=== PATIENT | male | born 1940 | race Caucasian/White ===

== ENCOUNTER 2017-06-28 11:37 | Emergency (ER) | payer MEDICARE ==
[2017-06-28] MEDS ORDERED: oxyCODONE HCL/ACETAMINOPHEN 1 TAB TABLET PO ONE (12:24)
[2017-06-28] MEDS ORDERED: oxyCODONE HCL/ACETAMINOPHEN 1 TAB TABLET ONE (12:27)
[2017-06-28 12:33] VITALS: BP 133/55
--- NOTE | 2017-06-28 12:36 | ERNOTE ---
Lower Extremity HPI - Narrative Date of Service: 06/28/17 - General Lower Extremities Pain: knee: left Time Seen by Provider: 06/28/17 12:09 Source: patient, family, RN notes reviewed Exam Limitations: no limitations - Immun/Allergies/Home Medications Immunizations: IMMUNIZATION HX History of Influenza Vaccine Yes Hx Pneumococcal Vaccination Yes Allergies/Adverse Reactions: Allergies Allergy/AdvReac Type Severity Reaction Status Date / Time No Known Allergies Allergy Verified 06/28/17 11:53 Home Medications: HOME MEDICATIONS Bimatoprost [Lumigan 0.03% Ophthalmic Solution] 1 drop EACHEYE HS 11/28/14 [ Last Taken Unknown] Calcium Carbonate/Vitamin D3 [Caltrate-600 with Vit D Tab] 1 each PO BID [Last Taken Unknown] Cholecalciferol (Vitamin D3) [Vitamin D3] 2,000 unit PO DAILY 11/28/14 [Last Taken Unknown] Duloxetine HCl [Cymbalta] 60 mg PO DAILY 11/28/14 [Last Taken Unknown] Glimepiride [Amaryl] 4 mg PO DAILY@0700 11/28/14 [Last Taken Unknown] Insulin Glargine,Hum.rec.anlog [Lantus] 32 units SQ BID 11/28/14 [Last Taken Unknown] [place]-3 Fatty Acids/Fish Oil [Fish Oil 1,200 mg Softgel] 1 each PO TID 11/28/14 [Last Taken Unknown] Terazosin HCl 10 mg PO HS 11/28/14 [Last Taken Unknown] Afrin Nasal [place] 02/16/17 [Last Taken Unknown] Carbidopa-Levo 25-100 mg Odt 02/16/17 [Last Taken Unknown] Carbidopa/Levodopa Cr 50/200 02/16/17 [Last Taken Unknown] Ropinirole ER 02/16/17 [Last Taken Unknown] Stool Softener 02/16/17 [Last Taken Unknown] - History of Present Illness Narrative: 76 y/o male ambulatory to the ED for a left knee injury that occurred just over an hour ago. He was walking down his front steps at home when he fell and landed on the knee. He reports pain in the posterior aspect of the knee. He is walking with a walker. He was actually leaving home to come to the hospital for PT for his back. Occurred: just prior to arrival Location of Incident: home Method of Injury: Reports: fell Reason for Fall: Reports: unknown Loss of Consciousness: Reports: no loss of consciousness Associated Symptoms: Denies: unable to bear weight, snapping, popping sensation Other Injuries: Reports: none Subsequent Symptoms: Denies: sensory loss, numbness, motor loss Prior Treament: Denies: recently seen Review of Systems - Review of Systems Constitutional: Absent: recent illness, fever, malaise EYE: Present: no symptoms reported ENT: Present: no symptoms reported Respiratory: Present: no symptoms reported Cardiology: Absent: chest pain, syncope, edema Gastrointestinal/Abdominal: Absent: nausea, vomiting Genitourinary: Present: no symptoms reported Musculoskeletal: Present: back pain, joint pain. Absent: neck pain, joint swelling Skin: Absent: rash, lesions, lumps Neurological: Absent: headache, dizziness/light-headedness Endocrine: Present: no symptoms reported Hematologic/Lymphatic: Present: no symptoms reported Psych: Present: no symptoms reported - Patient's Past Medical History Patient History - Medical: Anemia, Arthritis, Diabetes Type 2, Depression, GERD , Kidney stone, Renal Disease, Other - Parkinson's Patient History - Cardiac/Respiratory: Hyperlipidemia, TIA Patient History - Cancer: No Hx of Cancer Patient History - Surgical Procedures: Back Surgery, Cholecystectomy, Colonoscopy, EGD, Other, Orthopedic Patient History - Other: None - Social History Living Situations: home Psych History: No pertinent hx Smoking Status: Former smoker Alcohol Use: none Drug Use: none - Immunizations Hx Pneumococcal Vaccination: Yes History of Influenza Vaccine: Yes Physical Exam - Physical Exam General Appearance: Present: wd/wn, alert, no apparent distress Head Exam: Present: normal inspection, no evidence of injury Respiratory: Present: no respiratory distress, no accessory muscle use Extremity Exam: Present: no edema, decreased range of motion - Left knee, other - Mild tenderness to left posterior knee, no ecchymosis or deformity Neurological Exam: Present: alert, oriented, normal mood/affect, no motor/ sensory deficits Skin Exam: Present: normal color, warm/dry ED Progress - Vital Signs Patient's Vital Signs:: I have reviewed the patient's vital signs. Vital Signs: Vital Signs 06/28/17 11:49 Temperature 36.8 C Pulse Rate 68 Respiratory 17 Rate Blood Pressure 141/86 O2 Sat by Pulse 97 Oximetry - X-Ray X-Ray #1 X-Ray: knee Interpretation: Reviewed by me X-ray Comments: Left knee IMPRESSION: 1. No definable acute fracture. 2. Lateral subluxation of the patella versus projectional artifact. Correlate clinically. 3. Large joint effusion present. Consider internal derangement. 4. 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 Correlate can agree for calcium pyrophosphate deposition disease arthropathy. 5. Additional comments are as above. Electronically signed by Nnamdi Corley M.D.. - Progress/Reassessment Chief Complaint: Lower Extremity Pain/ Injury Progress:: Improved Progress Note-Subjective: 06/28/17 12:54 ROMAINE wrap to left knee, to f/u with orthopedics Departure Clinical Impression: Knee effusion, left Fall down steps Qualifiers: Encounter type: initial encounter Qualified Code(s): W10.8XXA - Fall (on) (from ) other stairs and steps, initial encounter - Departure Disposition: Home Follow Up Needed Condition: Stable Instructions: Knee Effusion, [id number] Additional Instructions: Ice to sore area ROMAINE wrap as needed Percocet as directed for pain, do not take your Tramadol if you are taking this , may cause constipation Follow up with orthopedics as scheduled Referrals: Rebel Da Silva MD [Staff Physician] -
== END 2017-06-28 13:00 | disposition home or self-care (01) ==
LOC: ER 11:37
DX: M25.462 Effusion, left knee (principal); W10.8XXA Fall (on) (from) other stairs and steps, initial encounter

== ENCOUNTER 2017-08-02 20:22 | Emergency (ER) | payer MEDICARE ==
--- NOTE | 2017-08-02 21:45 | ERNOTE ---
<Ольга Huang - Last Filed: 08/02/17 22:41> Medical Problem HPI - Narrative Date of Service: 08/02/17 - General Chief Complaint: Diabetes Related Problem Time Seen by Provider: 08/02/17 21:30 Source: patient Exam Limitations: no limitations - Immun/Allergies/Home Medications Immunizations: IMMUNIZATION HX Immunizations Up to Date Yes History of Influenza Vaccine No Hx Pneumococcal Vaccination No Allergies/Adverse Reactions: Allergies No Known Allergies Allergy (Verified 06/28/17 11:53) Home Medications: HOME MEDICATIONS Duloxetine HCl [Cymbalta] 60 mg PO BID 11/28/14 [Last Taken Unknown] Glimepiride [Amaryl] 4 mg PO DAILY@0700 11/28/14 [Last Taken Unknown] Insulin Glargine,Hum.rec.anlog [Lantus] 30 units SQ BID 11/28/14 [Last Taken Unknown] [place]-3 Fatty Acids/Fish Oil [Fish Oil 1,200 mg Softgel] 1 each PO TID 11/28/14 [Last Taken Unknown] Terazosin HCl 10 mg PO HS 11/28/14 [Last Taken Unknown] Bimatoprost [Lumigan 0.01% Opth Solution] 1 drop EACHEYE HS 08/02/17 [Last Taken Unknown] Carbidopa/Levodopa Cr 50/200 [Sinemet Cr 50/200] 1 tab PO HS 08/02/17 [Last Taken Unknown] Carbidopa/Levodopa [Carbidopa-Levo 25-100 mg Odt] 1 each PO TID 08/02/17 [Last Taken Unknown] Docusate Sodium [Stool Softener] 100 mg PO HS 08/02/17 [Last Taken Unknown] Oxymetazoline HCl [Afrin Nasal [place]] 2 sprays NS DAILY PRN 08/02/17 [Last Taken Unknown] clonazePAM [Klonopin] 0.5 mg PO HS 08/02/17 [Last Taken Unknown] rOPINIRole HCL [Requip] 1 mg PO TID 08/02/17 [Last Taken Unknown] - History of Present History Narrative: Pt. comes in with c/o having difficulty finding words and saying the wrong words 4 hours ago. Pt. denies any SOB, CP, NVD, recent illness but when checked his blood sugar pt. was 373 this is much higher than pt. usually is. Pt. denies any alleviating or aggravating factors. Pt. has a hx of parkinsons and was exposed to strep recently by his grandchildren. Review of Systems - Review of Systems Constitutional: Present: no symptoms reported. Absent: recent illness, fever, chills, weakness, fatigue, malaise EYE: Present: no symptoms reported ENT: Present: no symptoms reported. Absent: ear pain, nose pain, nose congestion, nasal drainage, sore throat Respiratory: Present: no symptoms reported. Absent: shortness of breath, cough , wheezing Cardiology: Present: no symptoms reported. Absent: chest pain, palpitations, edema Gastrointestinal/Abdominal: Present: no symptoms reported Genitourinary: Present: no symptoms reported Musculoskeletal: Present: no symptoms reported. Absent: back pain, joint pain Skin: Present: no symptoms reported. Absent: rash, change in color Neurological: Present: other - word salad and word finding difficulty. Absent: headache, dizziness/light-headedness, seizure, weakness, numbness, tingling Endocrine: Present: no symptoms reported Hematologic/Lymphatic: Present: no symptoms reported All Other Systems: All systems neg except as marked - Patient's Past Medical History Patient History - Medical: Anemia, Arthritis, Diabetes Type 2, Depression, GERD , Kidney stone, Renal Disease Patient History - Cardiac/Respiratory: Hyperlipidemia, TIA Patient History - Cancer: No Hx of Cancer Patient History - Surgical Procedures: Back Surgery, Cholecystectomy, Colonoscopy, EGD, Other, Orthopedic Patient History - Other: None - Social History Psych History: No pertinent hx Smoking Status: Former smoker Have you smoked in the past 12 months: No Do you dip or chew tobacco: No - Immunizations Immunizations Up to Date: Yes Hx Pneumococcal Vaccination: No History of Influenza Vaccine: No Physical Exam - Physical Exam General Appearance: Present: wd/wn, alert, no apparent distress Head Exam: Present: normal inspection, no evidence of injury Eye Exam: Normal inspection: bilateral, PERRL: bilateral, EOMI: bilateral Ears, Nose, Throat: Present: normal ENT inspection, normal pharynx Neck: Present: normal inspection, nontender. Absent: lymphadenopathy (R), lymphadenopathy (L) Respiratory: Present: no respiratory distress, normal breath sounds, no accessory muscle use, chest nontender, lungs clear Cardiovascular/Chest: Present: regular rate, rhythm, no murmur, normal peripheral pulses Gastrointestinal/Abdominal: Present: normal bowel sounds, nontender, nondistended, soft, no organomegaly Male Genitals Exam: Present: normal genitalia, normal prostate, no hernia Back Exam: Present: normal inspection, normal range of motion, no CVA tenderness , no vertebral tenderness Extremity Exam: Present: normal inspection, non-tender, normal range of motion, no edema Neurological Exam: Present: alert, oriented, normal mood/affect, no motor/ sensory deficits, 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 with essential tremor and eyelid droop and has mild word finding difficulties upon exam. Absent: normal cerebellar test Skin Exam: Present: normal color, warm/dry. Absent: pallor, skin rash ED Progress - Date and Time Seen: Date and Time: 08/02/17 21:45 As pt. has transcortical sensory aphasia at home that resolved after some time I feel that this is not likely related to hyperglycemia and is more likely TIA vs CVA vs beginning dementia. - Vital Signs Patient's Vital Signs:: I have reviewed the patient's vital signs. Vital Signs: Vital Signs 08/02/17 08/02/17 20:53 21:24 Temperature 37.3 C 36.8 C Pulse Rate 88 69 Respiratory 18 16 Rate Blood Pressure 141/67 141/63 O2 Sat by Pulse 96 96 Oximetry - Progress/Reassessment Chief Complaint: Diabetes Related Problem Progress:: Unchanged - Transfer of Care Physician Sign Out: Ольга Huang Receiving Physician: Bill Kaba Pending Results: CT/MRI results Expected Disposition: Admit Departure Clinical Impression: Word finding difficulty, Hyperglycemia - Departure Disposition: Home self-care Condition: Good Instructions: Transient Ischemic Attack, [id number] Additional Instructions: watch for signs of a mini-stroke (TIA) as in the instructions. Return to ER if you have further symptoms Referrals: Tk Mckeon MD [Primary Care Provider] - <Bill Kaba - Last Filed: 08/03/17 06:17> Medical Problem HPI - Immun/Allergies/Home Medications Immunizations: IMMUNIZATION HX Immunizations Up to Date Yes History of Influenza Vaccine No Hx Pneumococcal Vaccination No ED Progress - Results and Orders Patient's Lab Results:: I have reviewed the patient's lab results. Results and Orders: Laboratory Tests 08/02/17 08/02/17 08/02/17 21:24 21:50 21:50 WBC 5.2 Hgb 13.6 Hct 37.7 L Plt Count 198 Sodium 138 Plasma Sodium 142 Potassium 4.5 Chloride 103 Anion Gap 13.3 BUN 32 H Creatinine 1.57 H Random Glucose 377 H Mean Blood Glucose 130 Hemoglobin A1c 6.5 H Calcium 9.2 Phosphorus Magnesium Total Bilirubin 0.8 AST 11 ALT 9 L Alkaline Phosphatase 106 Troponin I 0.022 Total Protein 6.7 Albumin 3.6 Amylase 99 Lipase 556 H Urine Color Urine Appearance Urine pH Ur Specific [place] Urine Protein Urine Glucose (UA) Urine Ketones Urine Blood Urine Nitrate Urine Bilirubin Urine Urobilinogen Ur Leukocyte Esterase Urine RBC Urine WBC Ur Epithelial Cells Urine Bacteria Urine Culture Comments 08/02/17 08/02/17 22:09 22:41 WBC Hgb Hct Plt Count Sodium Plasma Sodium Potassium Chloride Anion Gap BUN Creatinine Random Glucose Mean Blood Glucose Hemoglobin A1c Calcium Phosphorus 3.1 Magnesium 2.1 Total Bilirubin AST ALT Alkaline Phosphatase Troponin I Total Protein Albumin Amylase Lipase Urine Color Yellow Urine Appearance Clear Urine pH 6.0 Ur Specific [place] <=1.005 Urine Protein Negative Urine Glucose (UA) >=1000 H Urine Ketones Negative Urine Blood Negative Urine Nitrate Negative Urine Bilirubin Negative Urine Urobilinogen Normal Ur Leukocyte Esterase Negative Urine RBC None seen Urine WBC Trace Ur Epithelial Cells None seen Urine Bacteria Trace Urine Culture Comments No culture indicated - Vital Signs Vital Signs: Vital Signs 08/02/17 08/02/17 08/02/17 20:53 21:24 22:21 Temperature 37.3 C 36.8 C 36.3 C L Pulse Rate 88 69 68 Respiratory 18 16 16 Rate Blood Pressure 141/67 141/63 141/70 O2 Sat by Pulse 96 96 95 Oximetry 08/02/17 08/02/17 08/02/17 23:20 23:45 23:46 Temperature Pulse Rate 63 64 51 L Respiratory 20 18 20 Rate Blood Pressure 147/60 143/44 154/61 O2 Sat by Pulse 96 94 94 Oximetry - EKG EKG read: Interp. 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 NO ACUTE INTRACRANIAL PROCESS; IF THERE IS CLINICAL CONCERN FOR ACUTE CVA, FOLLOW-UP CT OR MRI IS RECOMMENDED. 2. MODERATE CORTICAL ATROPHY AND MODERATE ISCHEMIC SMALL VESSEL DISEASE. 3. VENTRICULOMEGALY; NORMAL PRESSURE HYDROCEPHALUS VERSUS CENTRAL ATROPHY; THIS IS SIMILAR TO THE PRIOR STUDY FROM 2015 Electronically signed by Spenser Leger M.D.. - Progress/Reassessment Progress Note-Subjective: 08/03/17 01:13 spoke with patient and his . He is feeling better and believes his symptoms were related to being exposed to illness from his grandkids. Encouraged them to watch any symptoms that could suggest CVA/ TIA. Pt and express understanding
[2017-08-02 21:57] LABS: Hematocrit 37.7 % (42.0-52.0); Hemoglobin 13.6 gm/dL (13.5-18.0); Mean Cell Volume 90.2 fl (78-100); Mean Corpuscular Hemoglobin 32.5 pg (27-31); Mean Corpuscular Hgb Conc 36.1 g/dl (32-36); Mean Platelet Volume 9.5 fl (6.0-9.5); Neutrophil # 2.5 K/mm3 (1.3-6.0); Neutrophil % 48.5 % (42-75.0); Platelet Count 198 K/mm3 (150-450); Red Blood Count 4.18 M/mm3 (4.7-6.0); Red Cell Distribution Width 13.6 % (11.5-14.0); White Blood Count 5.2 K/mm3 (4.0-10.5)
[2017-08-02 22:08] LABS: Albumin * 3.6 gm/dl (3.4-5.0); Anion Gap 13.3 mmol/L (6.8-13.8); BUN/Creatinine Ratio 20.4 (9.0-21.6); Bilirubin, Total 0.8 mg/dL (0.0-1.1); Ca. Corrected For Albumin 9.2 mg/dL (8.4-10.2); Calcium * 9.2 mg/dL (7.9-10.9); Carbon Dioxide 26.2 mmol/L (24-32.6); Potassium 4.5 mmol/L (3.4-4.6); Total Protein 6.7 gm/dL (6.2-8.2)
[2017-08-02 22:09] LABS: Troponin I 0.022 ng/ml (0.00-0.10)
[2017-08-02 22:15] LABS: Hemoglobin A1C 6.5 % (4.00-6.0)
[2017-08-02 22:26] LABS: Urine Bilirubin Negative (NEGATIVE); Urine Blood Negative /ul (NEGATIVE); Urine Ketone Negative (NEGATIVE); Urine Nitrite Negative (NEGATIVE); Urine Protein Negative (NEGATIVE); Urine Specific Gravity <=1.005 SP.GR. (1.005-1.030); Urine Urobilinogen Normal (NORMAL)
[2017-08-02 22:35] LABS: Urine Appearance Clear; Urine Bacteria TRACE; Urine Color Yellow; Urine RBC None Seen /hpf (0-5); Urine WBC TRACE /hpf (0-5)
[2017-08-02] MEDS ORDERED: INSULIN REGULAR, HUMAN 100 UNITS/ML VIAL SC ONE (22:45)
[2017-08-02] MEDS ORDERED: INSULIN REGULAR, HUMAN 100 UNITS/ML VIAL ONE (22:50)
[2017-08-02 23:13] LABS: Magnesium 2.1 mg/dL (1.2-2.8); Phosphorus 3.1 mg/dL (2.2-4.2)
[2017-08-03 01:40] VITALS: BP 136/63
== END 2017-08-03 01:38 | disposition home or self-care (01) ==
LOC: ER 20:22
DX: R73.9 Hyperglycemia, unspecified (principal); R47.89 Other speech disturbances; Z79.4 Long term (current) use of insulin; Z87.442 Personal history of urinary calculi; E78.5 Hyperlipidemia, unspecified; F32.9 Major depressive disorder, single episode, unspecified; Z87.891 Personal history of nicotine dependence; Z86.73 Personal history of transient ischemic attack (TIA), and cerebral infarction without residual deficits

== ENCOUNTER 2017-10-02 12:20 | Observation (INO) | payer MEDICARE ==
[2017-10-02 12:39] LABS: Hematocrit 37.5 % (42.0-52.0); Hemoglobin 13.5 gm/dL (13.5-18.0); Mean Cell Volume 89.7 fl (78-100); Mean Corpuscular Hemoglobin 32.3 pg (27-31); Neutrophil # 4.1 K/mm3 (1.3-6.0); Neutrophil % 64.4 % (42-75.0); Platelet Count 167 K/mm3 (150-450); Red Blood Count 4.18 M/mm3 (4.7-6.0); Red Cell Distribution Width 13.9 % (11.5-14.0); White Blood Count 6.4 K/mm3 (4.0-10.5)
--- NOTE | 2017-10-02 12:45 | ERNOTE ---
Neuro HPI ER Record Presenting Symptoms: weakness, confusion Time Seen by Provider: 10/02/17 12:20 Source: patient, family Exam Limitations: clinical condition Immunizations: IMMUNIZATION HX Immunizations Up to Date Yes History of Influenza Vaccine Yes Hx Pneumococcal Vaccination Yes Allergies/Adverse Reactions: Allergies Allergy/AdvReac Type Severity Reaction Status Date / Time No Known Allergies Allergy Verified 10/02/17 12:29 Home Medications: HOME MEDICATIONS Duloxetine HCl [Cymbalta] 60 mg PO BID 11/28/14 [Last Taken Unknown] Glimepiride [Amaryl] 4 mg PO DAILY@0700 11/28/14 [Last Taken Unknown] Insulin Glargine,Hum.rec.anlog [Lantus] 25 units SQ BID 11/28/14 [Last Taken Unknown] [place]-3 Fatty Acids/Fish Oil [Fish Oil 1,200 mg Softgel] 1 each PO TID 11/28/14 [Last Taken Unknown] Terazosin HCl 10 mg PO HS 11/28/14 [Last Taken Unknown] Bimatoprost [Lumigan 0.01% Opth Solution] 1 drop EACHEYE HS 08/02/17 [Last Taken Unknown] Carbidopa/Levodopa Cr 50/200 [Sinemet Cr 50/200] 1 tab PO HS 08/02/17 [Last Taken Unknown] Carbidopa/Levodopa [Carbidopa-Levo 25-100 mg Odt] 1 each PO TID 08/02/17 [Last Taken Unknown] Docusate Sodium [Stool Softener] 100 mg PO HS 08/02/17 [Last Taken Unknown] Oxymetazoline HCl [Afrin Nasal [place]] 2 sprays NS DAILY PRN 08/02/17 [Last Taken Unknown] clonazePAM [Klonopin] 0.5 mg PO HS 08/02/17 [Last Taken Unknown] rOPINIRole HCL [Requip] 1 mg PO TID 08/02/17 [Last Taken Unknown] Aspirin 81 mg PO DAILY 10/02/17 [Last Taken Unknown] Sertraline HCl [Zoloft] 25 mg PO DAILY 10/02/17 [Last Taken Unknown] - History of Present Illness Narrative: Patient's history is mainly obtained from . She reports that patient has history of diabetes and parkinson's . At times he has difficulty getting going in the morning. He was last normal last night, got up around eight and had difficulty turning on the TV and communicating with , seemed confused, slurred speech, no definite weakness He had similar symptoms in April, was not diagnosed with a CVA at that time, no recent illness Review of Systems - Narrative Narrative: limited by patient's mental status - Review of Systems Constitutional: Present: fever. Absent: recent illness Neurological: Present: See HPI - Patient's Past Medical History Patient History - Medical: Anemia, Arthritis, Diabetes Type 2, Depression, GERD , Kidney stone, Renal Disease Patient History - Cardiac/Respiratory: Hyperlipidemia, TIA Patient History - Cancer: No Hx of Cancer Patient History - Surgical Procedures: Back Surgery, Cholecystectomy, Colonoscopy, EGD, Other, Orthopedic Patient History - Other: None - Family History Mother Family History - Medical: Diabetes Type 2 Family History - Cancer: Cervical Father Family History - Medical: Diabetes Type 2 - Social History Living Situations: spouse Psych History: No pertinent hx Smoking Status: Former smoker Have you smoked in the past 12 months: No Do you dip or chew tobacco: No Alcohol Use: none Drug Use: none - Immunizations Immunizations Up to Date: Yes Hx Pneumococcal Vaccination: Yes History of Influenza Vaccine: Yes Physical Exam - Physical Exam General Appearance: Present: wd/wn, no apparent distress, lethargic Head Exam: Present: normal inspection, no evidence of injury Eye Exam: Normal inspection: bilateral, PERRL: bilateral, EOMI: bilateral Ears, Nose, Throat: Present: normal pharynx Neck: Present: normal inspection, nontender Respiratory: Present: no respiratory distress, normal breath sounds, no accessory muscle use, lungs clear Cardiovascular/Chest: Present: regular rate, rhythm, no murmur Gastrointestinal/Abdominal: Present: nontender, nondistended, soft Extremity Exam: Present: normal inspection, no edema Neurological Exam: Present: no motor/sensory deficits, 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 Right Arm Motor (10 sec hold): No drift Left Arm Motor (10 sec hold): No drift Right Leg Motor (5 sec hold): No effort, limb falls Left Leg Motor (5 sec hold): No effort, limb falls Limb Ataxia (finger/nose heel/birch): Absent Sensory Loss (pinprick arms/legs/face): No sensory loss Language Aphasia (description/naming/reading): Mild, yet understandable ED Progress - Results and Orders Patient's Lab Results:: I have reviewed the patient's lab results. - Vital Signs Patient's Vital Signs:: I have reviewed the patient's vital signs. Vital Signs: Vital Signs 10/02/17 10/02/17 12:23 12:31 Temperature 36.2 C L Pulse Rate 72 60 Respiratory 12 19 Rate Blood Pressure 154/72 O2 Sat by Pulse 97 97 Oximetry - EKG EKG: NSR, nonspecific ST T wave changes, other - 1st degree AV block EKG read: Interp. by me - X-Ray X-Ray #1 X-Ray: chest - cardiac enlargement, no acute findings Interpretation: Reviewed by me - CT/Ultrasound CT/Ultrasound Narrative: CT head: no acute - Progress/Reassessment Chief Complaint: CerebroVascular Accident Progress Note-Subjective: 10/02/17 12:[address] Corley, no acute findings 10/02/17 12:59 lethargic but arousable, follows commands 10/02/17 14:43 patient alert, talking, words garbled, doesn't make sense follows commands, equal retort setter 10/02/17 14:[address] Mckeon,okay to admit for observation and get MRI get carotid doppler, echo and UCS Departure Clinical Impression: Dysphasia - Departure Disposition: [facility] Condition: Stable
[2017-10-02 12:52] LABS: Prothrombin Time (Patient) 9.8 Seconds (9.0-11.0)
[2017-10-02 12:55] LABS: INR 0.98 INR (0.90-1.10); Partial Thrombolplastin Time 29.2 Seconds (24-32)
[2017-10-02 12:59] LABS: Albumin * 3.5 gm/dl (3.4-5.0); Anion Gap 12.3 mmol/L (6.8-13.8); BUN/Creatinine Ratio 13.8 (9.0-21.6); Bilirubin, Total 0.8 mg/dL (0.0-1.1); Calcium * 8.9 mg/dL (7.9-10.9); Carbon Dioxide 26.9 mmol/L (24-32.6); Potassium 4.2 mmol/L (3.4-4.6); Total Protein 6.5 gm/dL (6.2-8.2)
[2017-10-02] MEDS ORDERED: ONDANSETRON HCL/PF 2 MG/ML VIAL ONE (13:17)
[2017-10-02] MEDS ORDERED: ONDANSETRON HCL/PF 2 MG/ML VIAL IV ONE (13:20)
[2017-10-02 16:27] LABS: Urine Bilirubin Negative (NEGATIVE); Urine Blood Negative /ul (NEGATIVE); Urine Ketone Negative (NEGATIVE); Urine Nitrite Negative (NEGATIVE); Urine Protein 30 mg/dL (NEGATIVE); Urine Urobilinogen Normal (NORMAL)
[2017-10-02 16:45] LABS: Urine Appearance Clear; Urine Bacteria 1+; Urine Color Yellow; Urine RBC None Seen /hpf (0-5); Urine WBC None Seen /hpf (0-5)
[2017-10-02] MEDS ORDERED: CLOPIDOGREL BISULFATE 75 MG TABLET PO ONE (19:51)
[2017-10-02] MEDS ORDERED: ROSUVASTATIN CALCIUM 20 MG TABLET PO ONE (20:00)
[2017-10-02] MEDS: SERTRALINE HCL 50 MG TABLET PO SCH (20:43)
[2017-10-02] MEDS: INSULIN GLARGINE,HUM.REC.ANLOG 100 UNITS/ML VIAL SC SCH (20:44)
[2017-10-02] MEDS ORDERED: BIMATOPROST 25 DROP BTL EACHEYE SCH (21:00)
[2017-10-02] MEDS ORDERED: TERAZOSIN HCL 5 MG CAPSULE PO SCH (21:00)
[2017-10-02] MEDS: CARBIDOPA/LEVODOPA 25/100 1 TAB TABLET PO SCH (21:29)
--- NOTE | 2017-10-02 23:01 | HP ---
Chief Complaint - Chief Complaint Date of Service: 10/02/17 Time of Service: 19:30 Chief Complaint: confusion and weakness History of Present Illness: 77 years old male adm to the hospital with report of difficulty getting out of bed, noticed he have difficulty finding words and expressing himself. Pt a poor historian, Information obtained from ER records and previous chart.PMH significant for Parkinson disease, anemia,CKD stage III, diabetes type II, kidney stones. Personnel And Payroll Technician spoke with by way of phone conversation , pt was unable to articulate what his needs were while at home and he appear to be confused and weak, he was unable to walk all he was talking was " [place]" and he have been falling a lot and sleeping frequently.pt has not been able to determine his location in the house and walk into the door jam. stated he had similar episode last summer and she thought he had a CVA but it self resolved. In ER CT head: No acute intra-cranial abnormality. Stable ventriculomegaly without sacral effacement. CXR: cardiac enlargement, No acute cardio-pulmonary process. Will adm obv pending echo, carotid duplex and MRI brain. Plan of care discussed with she verbalized understanding and agrees. - Patient's Past Medical History Patient History - Medical: Anemia, Arthritis, Cataracts, Diabetes Type 2, Depression, GERD, Kidney stone, Osteoarthritis, Renal Disease - stage III Patient History - Cardiac/Respiratory: Hyperlipidemia, TIA, Other - neuropathy, parkinson disease, pneumonia Patient History - Cancer: No Hx of Cancer Patient History - Surgical Procedures: Back Surgery, Cholecystectomy, Colonoscopy - with biopsy, EGD - with biopsy, Total Knee Replacement - right, Other - Knee arthoscopy, khyphoplasty, capal tunnal release, right knee revision , Orthopedic Patient History - Other: None - Family History Mother Family History - Medical: Diabetes Type 2 Family History - Cancer: Cervical Father Family History - Medical: Diabetes Type 2 - Social History Living Situations: spouse Psych History: No pertinent hx Smoking Status: Former smoker Have you smoked in the past 12 months: No Do you dip or chew tobacco: No Alcohol Use: none Drug Use: none - Immunizations Immunizations Up to Date: Yes Hx Pneumococcal Vaccination: Yes History of Influenza Vaccine: Yes Review Of Systems (GEN) - Review of Systems Generalized/Overall Review: Present: Weakness EENTM: Present: No Symptoms Reported Respiratory: Present: No Symptoms Reported Cardiac: Present: No Symptoms Reported Abdominal: Present: No Symptoms Reported Genitourinary: Present: No Symptoms Reported Musculoskeletal: Present: No Symptoms Reported Neurological: Present: Weakness Skin: Present: No Symptoms Reported Endocrine: Present: No Symptoms Reported Immunizations: IMMUNIZATION HX Immunizations Up to Date Yes History of Influenza Vaccine Yes Hx Pneumococcal Vaccination Yes Allergies/Adverse Reactions: Allergies Allergy/AdvReac Type Severity Reaction Status Date / Time No Known Allergies Allergy Verified 10/02/17 12:29 Home Medications: HOME MEDICATIONS Duloxetine HCl [Cymbalta] 60 mg PO BID 11/28/14 [Last Taken Unknown] Glimepiride [Amaryl] 4 mg PO DAILY@0700 11/28/14 [Last Taken Unknown] Insulin Glargine,Hum.rec.anlog [Lantus] 25 units SQ BID 11/28/14 [Last Taken Unknown] [place]-3 Fatty Acids/Fish Oil [Fish Oil 1,200 mg Softgel] 1 each PO TID 11/28/14 [Last Taken Unknown] Terazosin HCl 10 mg PO HS 11/28/14 [Last Taken Unknown] Bimatoprost [Lumigan 0.01% Opth Solution] 1 drop EACHEYE HS 08/02/17 [Last Taken Unknown] Carbidopa/Levodopa Cr 50/200 [Sinemet Cr 50/200] 1 tab PO HS 08/02/17 [Last Taken Unknown] Carbidopa/Levodopa [Carbidopa-Levo 25-100 mg Odt] 1 each PO TID 08/02/17 [Last Taken Unknown] Docusate Sodium [Stool Softener] 100 mg PO HS 08/02/17 [Last Taken Unknown] Oxymetazoline HCl [Afrin Nasal [place]] 2 sprays NS DAILY PRN 08/02/17 [Last Taken Unknown] clonazePAM [Klonopin] 0.5 mg PO HS 08/02/17 [Last Taken Unknown] rOPINIRole HCL [Requip] 1 mg PO TID 08/02/17 [Last Taken Unknown] Aspirin 81 mg PO DAILY 10/02/17 [Last Taken Unknown] Sertraline HCl [Zoloft] 25 mg PO DAILY 10/02/17 [Last Taken Unknown] Exam - Exam Vital Signs: Vital Signs - Last Taken Temp 36.7 C 10/02/17 21:08 Pulse 73 10/02/17 21:08 Resp 16 10/02/17 21:08 BP 146/59 10/02/17 21:08 Pulse Ox 92 10/02/17 21:08 Constitutional: Present: Cooperative, No distress, Elderly, Morbidly obese ENT Exam: Present: hearing grossly normal Eye Exam: bilateral eye: normal inspection Neck: Present: full range of motion Back Exam: Present: normal inspection Breasts: Present: Exam deferred Respiratory: Present: chest non-tender, lungs clear, normal breath sounds, no respiratory distress, decreased breath sounds Cardiovascular/Chest: Present: normal peripheral pulses, regular rate, rhythm, no chest tenderness, no edema Peripheral Pulses: dorsalis-pedis (R): 3+, dorsalis-pedis (L): 3+ Abdomen: Present: Normal bowel sounds, soft, nontender, nondistended, no rebound tenderness /Rectal: Present: Exam deferred Extremity: Present: non-tender, normal inspection, no calf tenderness, normal capillary refill Skin Exam: Present: warm/dry Neurologic: Present: alert, abnormal gait, aphasia - expressive, other - disoriented, time , place and situation. Appearance: Present: appropriate appearance, impaired insight, impaired recent memory Eye contact: Present: cooperative Thoughts: Present: no apparent hallucination, flight of ideas Diagnostic Studies: Abnormal Lab Results 10/02/17 Range/Units 16:25 Urine Protein 30 H (NEGATIVE) mg/dL Urine Glucose (UA) >=1000 H (NEGATIVE) mg/dL Urine Bacteria 1+ H (NONE) Laboratory Results WBC 6.4 K/mm3 (4.0-10.5) 10/02/17 12:35 RBC 4.18 M/mm3 (4.7-6.0) L 10/02/17 12:35 Hgb 13.5 gm/dL (13.5-18.0) 10/02/17 12:35 Hct 37.5 % (42.0-52.0) L 10/02/17 12:35 MCV 89.7 fl (78-100) 10/02/17 12:35 MCH 32.3 pg (27-31) H 10/02/17 12:35 MCHC 36.0 g/dl (32-36) 10/02/17 12:35 RDW 13.9 % (11.5-14.0) 10/02/17 12:35 Plt Count 167 K/mm3 (150-450) 10/02/17 12:35 MPV 9.0 fl (6.0-9.5) 10/02/17 12:35 Immature Gran % (Auto) 0.30 % (0.001-0.429) 10/02/17 12:35 Immature Gran # (Auto) 0.02 K/mm3 (0.000-0.0310) 10/02/17 12:35 Neutrophils % 64.4 % (42-75.0) 10/02/17 12:35 Lymphocytes % 22.9 % (20-51) 10/02/17 12:35 Monocytes % 8.2 % (0.0-9) 10/02/17 12:35 Eosinophils % 3.9 % (0.0-3.0) H 10/02/17 12:35 Basophils % 0.3 % (0.0-1.0) 10/02/17 12:35 Nucleated RBC % 0.0 k/mm3 (0-1) 10/02/17 12:35 Neutrophils # 4.1 K/mm3 (1.3-6.0) 10/02/17 12:35 Lymphocytes # 1.5 k/mm3 (1.5-3.5) 10/02/17 12:35 Monocytes # 0.5 k/mm3 (0.0-1.0) 10/02/17 12:35 Eosinophils # 0.3 k/mm3 (0.0-0.7) 10/02/17 12:35 Absolute Basophils 0.0 k/mm3 (0.0-0.1) 10/02/17 12:35 ESR 7 mm/hr (0-10) 10/02/17 12:35 PT 9.8 Seconds (9.0-11.0) 10/02/17 12:35 INR (Anticoag Therapy) 0.98 INR (0.90-1.10) 10/02/17 12:35 PTT (Anastacio) 29.2 Seconds (24-32) 10/02/17 12:35 Sodium 137 mmol/L (132-142) 10/02/17 12:35 Plasma Sodium 139 mmol/L (130-142) 10/02/17 12:35 Potassium 4.2 mmol/L (3.4-4.6) 10/02/17 12:35 Chloride 102 mmol/L (97-106) 10/02/17 12:35 Carbon Dioxide 26.9 mmol/L (24-32.6) 10/02/17 12:35 Anion Gap 12.3 mmol/L (6.8-13.8) 10/02/17 12:35 BUN 17 mg/dL (6-23) 10/02/17 12:35 Creatinine 1.23 mg/dL (0.4-1.4) 10/02/17 12:35 Est GFR (Non-Af Amer) 60 mL/min (60-130) D 10/02/17 12:35 BUN/Creatinine Ratio 13.8 (9.0-21.6) 10/02/17 12:35 Random Glucose 240 mg/dL (70-110) H 10/02/17 12:35 Calcium 8.9 mg/dL (7.9-10.9) 10/02/17 12:35 Calcium Adj for Albumin 9.0 mg/dL (8.4-10.2) 10/02/17 12:35 Total Bilirubin 0.8 mg/dL (0.0-1.1) 10/02/17 12:35 AST 13 U/L (0-48) 10/02/17 12:35 ALT 11 U/L (19-67) L 10/02/17 12:35 Alkaline Phosphatase 106 U/L (50-170) 10/02/17 12:35 Total Protein 6.5 gm/dL (6.2-8.2) 10/02/17 12:35 Albumin 3.5 gm/dl (3.4-5.0) 10/02/17 12:35 Urine Color Yellow 10/02/17 16:25 Urine Appearance Clear 10/02/17 16:25 Urine pH 7.0 pH (5.0-7.0) 10/02/17 16:25 Ur Specific [place] 1.020 SP.GR. (1.005-1.030) 10/02/17 16:25 Urine Protein 30 mg/dL (NEGATIVE) H 10/02/17 16:25 Urine Glucose (UA) >=1000 mg/dL (NEGATIVE) H 10/02/17 16:25 Urine Ketones Negative mg/dL (NEGATIVE) 10/02/17 16:25 Urine Blood Negative /ul (NEGATIVE) 10/02/17 16:25 Urine Nitrate Negative (NEGATIVE) 10/02/17 16:25 Urine Bilirubin Negative mg/dl (NEGATIVE) 10/02/17 16:25 Prot Sulfosalicylic Acd Negative mg/dL (0) 10/02/17 16:25 Urine Urobilinogen Normal EU/dl (NORMAL) 10/02/17 16:25 Ur Leukocyte Esterase Negative /ul (NEGATIVE) 10/02/17 16:25 Urine RBC None seen /hpf (0-5) 10/02/17 16:25 Urine WBC None seen /hpf (0-5) 10/02/17 16:25 Ur Epithelial Cells None seen /hpf (0-5) 10/02/17 16:25 Urine Bacteria 1+ (NONE) H 10/02/17 16:25 Urine Culture Comments No culture indicated 10/02/17 16:25 CT head: No acute intra-cranial abnormality. Stable ventriculomegaly without sacral effacement CXR: No acute cardio-pulmonary process. Assessment/Plan - Narrative Narrative: CVA vs TIA CT head no acute intracranial abnormality MRI head pending carotid duplex and echo pending PT/ OT eval and treatment pt observed having excessive aphasia Dysphasia Likely due to CVA/ TIA Continue plan same as #1 Parkinson continue with home medications supportive care Diabetes accu-check and continue home meds Consistent carb diet Code status: VTE ppx: SCd and ambulate GI ppx Time 45 minutes and case discussed with family and Dr Mckeon. - Assessment/Plan (1) Parkinson disease Problem: Chronic (2) Dysphasia Problem: Acute (3) Hyperglycemia Problem: Acute (4) Word finding difficulty Problem: Acute (5) CVA (cerebral vascular accident) Problem: Suspected
[2017-10-03] MEDS: INSULIN LISPRO 100 UNITS/ML VIAL SC SCH ×4 (06:56→11:51)
[2017-10-03] MEDS: INSULIN GLARGINE,HUM.REC.ANLOG 100 UNITS/ML VIAL SC SCH (09:14)
[2017-10-03] MEDS: rOPINIRole HCL 1 MG TABLET PO SCH ×2 (09:14→13:44)
[2017-10-03] MEDS: CARBIDOPA/LEVODOPA 25/100 1 TAB TABLET PO SCH ×2 (09:14→13:44)
[2017-10-03] MEDS: SERTRALINE HCL 50 MG TABLET PO SCH (09:14)
--- NOTE | 2017-10-03 13:55 | DS ---
(1) TIA (transient ischemic attack) Diagnosis(s): speech problems and memory deficits<24 hrs. 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 DATE OF DISCHARGE: 10/03/17. DIAGNOSTICS: CT HEAD W/O :10/02/17. MRI BRAIN W/O :10/03/17. US CAROTIDS :10/03/17. 2D ECHO :10/03/17. DISCHARGE SUMMARY: Juancarlos Snyder is a 77-year-old WM with a H/O HTN, HLD, T2 DM, Parkinson's disease, OA, BPH who was admitted to the hospital on 10/02/17s he woke up with difficulty in speech and memory problems. CT done in the ER showed no acute pathology and stable ventriculomegaly without sulcal effacement. Consider NPH. CBC and CMP were fairly normal except for a RBS of 240 mg/dL. He was admitted for further evaluation. Patient was given clopidogrel 300 mg by mouth 1 and rosuvastatin 40 mg 1. Patient did not have other neurological findings on exam. MRI of the brain without contrast on 10/03/17 showed no acute pathology, ventriculomegaly without sulcal effacement which can be seen with normal pressure hydrocephalus and nonspecific T2 bright signal which most likely represents chronic microvascular ischemic changes of the brain. US carotids: RANDALL 16-49% stenosis; LICA 16-49%; antegrade flow noted within the bilateral vertebral arteries. ECHO: Mild concentric LVH with EF 48%. Mild LV dilatation, RA mildly dilated, RVSP 45 mm Hg. Small pericardial effusion. Patient had markedly improved by the next day and to use walker/cane at all times. Patient is being discharged on clopidogrel 75 mg daily, rosuvastatin 20 mg daily, losartan 50 mg daily, tamsulosin 0.4 mg to be taken 30 minutes after supper. Hytrin/terazosin will be tapered off over 2 weeks. Fish oil and Afrin nasal drops will be DC'd. Patient to have home health care to monitor above med changes. A total of 35 minutes was spent in i. discussing plan of care and treatment options with the patient; ii. reconciliation of medications, discharge planning , preparing and dictating discharge summary. Procedures Performed: none Discharge Disposition: Home self care Disposition: Home self-care Condition: Undetermined Discharge Activity: Activity as tolerated - use walker at all times Discharge Diet: Consistent carbs, Low fat/chol, High Fiber Jail Therapy: Physicial Therapy, Occupation Therapy Referrals: Tk Mckeon MD [Primary Care Provider] - Problem Oriented Discharge Instructions to Patient/Family: Transient Ischemic Attack, [id number] Additional Patient Instructions (free text): MEDICATIONS DISCONTINUED/CHANGED: 1. Fish oil. 2. Afrin nasal drops. 3. Terazosin/ Hytrin 5 mg at bedtime for 5 days, 2 mg at bedtime for 5 days 1 mg at bedtime for 5 days and stop. NEW MEDICATIONS: 1. Rosuvastatin/crestor 20 mg daily. 2. Losartan 50 mg daily in a.m. 3. Tamsulosin/Flomax 0.4 mg 30 minutes after supper. 4. Clopidogrel 75 mg daily. 5. Vitamin D3 2000 units daily[OTC medication]. USE WALKER/CANE AT ALL TIMES TO PREVENT FALLS. Home health care referral. [facility], please call and fax discharge orders. Appointment with Dr. Mendes in 7+/- 2 days. Follow up with Dr. Mckeon on 10-11-17 @ 9AM. Prescriptions (Any new or edited meds): Clopidogrel Bisulfate [Plavix] 75 mg PO DAILY #30 tab Duloxetine HCl [Cymbalta] 90 mg PO DAILY #0.1 capsule. Rosuvastatin Calcium [Crestor] 20 mg PO DAILY #30 tablet Tamsulosin HCl [Flomax] 0.4 mg PO DAILY@1830 #30 cap.sr.24h Terazosin HCl [Hytrin] 5 mg PO HS #5 capsule Complete Home Medications List: Complete Home Medication List: Glimepiride [Amaryl] 4 mg PO DAILY@0700 11/28/14 Insulin Glargine,Hum.rec.anlog [Lantus] 25 units SQ BID 11/28/14 Bimatoprost [Lumigan 0.01% Ophthalmic Solution] 1 drop EACHEYE HS 08/02/17 Carbidopa/Levodopa Cr 50/200 [Sinemet Cr 50/200] 1 tab PO HS 08/02/17 Carbidopa/Levodopa [Carbidopa-Levo 25-100 mg Odt] 1 each PO TID 08/02/17 Docusate Sodium [Stool Softener] 100 mg PO HS 08/02/17 clonazePAM [Klonopin] 0.5 mg PO HS 08/02/17 rOPINIRole HCL [Requip] 1 mg PO TID 08/02/17 Aspirin 81 mg PO DAILY 10/02/17 Sertraline HCl [Zoloft] 25 mg PO DAILY 10/02/17 Clopidogrel Bisulfate [Plavix] 75 mg PO DAILY #30 tab 10/03/17 Duloxetine HCl [Cymbalta] 90 mg PO DAILY #0.1 capsule.dr 10/03/17 Rosuvastatin Calcium [Crestor] 20 mg PO DAILY #30 tablet 10/03/17 Tamsulosin HCl [Flomax] 0.4 mg PO DAILY@1830 #30 cap.sr.24h 10/03/17 Terazosin HCl [Hytrin] 5 mg PO HS #5 capsule 10/03/17
[2017-10-03 15:05] VITALS: BP 145/40
[2017-10-03] MEDS ORDERED: CLOPIDOGREL BISULFATE 75 MG TABLET PO ONE (15:05)
[2017-10-03] MEDS ORDERED: ROSUVASTATIN CALCIUM 20 MG TABLET PO ONE (15:10)
--- NOTE | 2017-10-03 16:14 | PN ---
Progess Note - Interim Narrative: 10/02/17 19:30 Patient was seen on 10/02/17 at approx. 1730 hrs. with Karina Vogt [N.P. Hospitalist]. Juancarlos Snyder is a 77-year-old WM with a history of HTN, HLD, T2 DM, Parkinson's disease and BPH was admitted to the hospital because of difficulty in speech and memory difficulties since waking up on the morning of 10/02/17. Initial CT of the head w/o showed no acute findings. Labs were WNL except for a glucose of 240 mg/dL. EKG was non acute. On exam, the patient had difficulty in expressing himself and could not recall the reason he was in the hospital. He was able to ambulate and had no other neurological deficits. Did not have any swallowing problems. Patient was clopidogrel 300 mg by mouth 1, rosuvastatin 40 mg 1. Med reconciliation was done. Patient discussed with BATHROOM TILING PROFESSIONAL. Diagnostics ordered: MRI of brain, US carotids, TTE. Full H&P to be done by Karina Vogt [N.P. hospitalist].
--- NOTE | 2017-10-05 07:53 | ECHO ---
This report is available in the EMR
== END 2017-10-03 17:39 | disposition home or self-care (01) ==
LOC: ER 12:20 → MS 14:56
PROVIDERS: ADMIT Internal Medicine; ATTEND Internal Medicine
DX: G45.9 Transient cerebral ischemic attack, unspecified (principal); I10 Essential (primary) hypertension; I12.9 Hypertensive chronic kidney disease with stage 1 through stage 4 chronic kidney disease, or unspecified chronic kidney disease; N18.3 Chronic kidney disease, stage 3 (moderate); Z87.891 Personal history of nicotine dependence; N40.1 Benign prostatic hyperplasia with lower urinary tract symptoms; R35.1 Nocturia; F41.8 Other specified anxiety disorders
CPT/HCPCS: 36415; 70450; 70551; 71010; 80053; 81001; 85025; 85610; 85652; 85730; 93005; 93306; 93880; 96372; 96374; 99285; G0378; J2405

== ENCOUNTER 2017-11-23 07:54 | Day surgery (SDC) | payer MEDICARE ==
[~2017-11-23 07:54] MED LIST: RINGER'S SOLUTION,LACTATED 1,000 ML IV PRN; ceFAZolin SODIUM 1 GM VIAL IV PRN
[2017-11-23] MEDS ORDERED: RINGER'S SOLUTION,LACTATED 1,000 ML IV ONE (08:40)
--- NOTE | 2017-11-23 11:36 | OR ---
Anesthesia Procedure Note - Anesthesia Procedure Note Date of Service: 11/23/17 Narrative: Vital Signs - Last Taken Temp 36.7 C 11/23/17 10:00 Pulse 68 11/23/17 10:00 Resp 16 11/23/17 10:00 BP 126/56 11/23/17 10:00 Pulse Ox 99 11/23/17 10:00 O2 Oxygen Delivery Method Room Air 11/23/17 11:35 ANESTHESIA PROCEDURE NOTE Date of Procedure: 11/23/2017. Time of procedure: 1005. Performed by: Danie Ortiz CRNA Senior Sales Consultant: None. Preprocedure diagnosis: Left rotator cuff tear. Post procedure diagnosis: Same. Procedure: Left ultrasound guided interacalene nerve block for postoperative analgesia. Indications: The patient is a 77 -year-old, patient scheduled for left shoulder arthroscopy is requesting a left ultrasound guided interscalene nerve block for postoperative and a seizure. Findings: See below. Details of the procedure: The tissue over the intended target site was cleansed with ChloraPrep. 1 ml Lidocaine 1 % was infiltrated to the skin and subcutaneous tissue. Under sterile technique and ultrasound guidance a 22-gauge block needle was inserted to the left brachial plexus nerve bundle between the anterior scalene and the middle scalene muscles. 40 mL's of 0.5% bupivacaine plus epinephrine 1:200,000 was injected after negative aspiration for blood. Needle tip and spread of local anesthetic around the brachial plexus was observed throughout the injection with real time ultrasound visualization. The needle was removed intact. No complications were noted. The images were retained in the hospital medical database . EBL: Minimal. Fluids: N/A. Specimen: N/A. Post procedure condition: The patient tolerated the procedure well. No complications were noted. Thank you for this consultation. Danie Ortiz CRNA
--- NOTE | 2017-11-23 11:43 | OR ---
Operative Report - Dictated Report Narrative: Date: 11/23/2017 Physician: Rebel Da Silva M.D. Coremaker Helper: Shorty Ahn PA-C Preoperative diagnosis: Left shoulder massive rotator cuff tear, degenerative SLAP tear, bicipital tenosynovitis Postoperative diagnosis: Left shoulder irreparable massive rotator cuff tear, degenerative SLAP tear, bicipital tenosynovitis Procedure: Left shoulder arthroscopy with biceps tenotomy, labral debridement, rotator cuff debridement Anesthesia: General plus regional Complications: None Estimated blood loss: Minimal Specimens: None Retained implants: None Drains: None Indications: Juancarlos Is a 77 year-old male who has been followed in my clinic with complaints of shoulder pain consistent with rotator cuff tear and bicipito-labral pain. Physical exam and diagnostic imaging were consistent with his complaints and concern for chronic, retracted tear of the supraspinatus with high grade partial tearing of the subscapularis and infraspinatus as well as degenerative SLAP tear. Conservative measures have failed including, but not limited to, passage of time, activity modification, medications, physical therapy/home exercise program, or injections. The risks, benefits, and alternatives were discussed in clinic. The risks being , bleeding, infection, blood clots, nerve, tendon, ligament, blood vessel injury, persistent pain, arthrosis, stiffness, need for prolonged therapy, need for additional procedures, and persistent symptoms. Consent was obtained in the clinic. Procedure: After marking the correct extremity in the preoperative holding area, a timeout was performed in the operating room. IV antibiotics consisting of 2 g of Ancef were administered prior to the procedure. A general followed by regional anesthetic was induced by the nurse weighter. This was in the supine position, then the patient was transitioned to a beachchair position with all bony prominences well-padded, head in neutral, the nonoperative arm well supported, and the legs padded with SCDs in place. The operative shoulder was then prepped and draped in a standard sterile fashion. Preoperatively the shoulder had full passive range of motion, and no instability. After marking out the bony landmarks, saline was infused into the joint through a posterior lateral portal site. A shama incision was made, and the blunt trocar and cannula was introduced into the shoulder joint. An anterior working portal was placed in the rotator cuff interval using a spinal needle for guidance. Upon initial evaluation, the biceps tendon showed tenosynovitis with tearing at the anchor. The middle glenohumeral ligament was intact. Subscapularis tendon demonstrated high-grade partial tearing and severe tendinosis. The glenoid showed grade 2 chondral changes. The humeral head articular surface showed grade 1 chondral change. The anterior labrum was frayed but intact. The superior labrum demonstrated a degenerative type II tear. The pouch was of normal caliber with no loose bodies. The posterior labrum was intact. The supraspinatus tendon was completely torn and retracted at least 1-1.5 cm medial to the glenoid. A large tenderness remnant of the supraspinatus was still attached at the footprint indicating a mid substance tendon tear as opposed to an avulsion off of the humerus. The infraspinatus tendon demonstrated full- thickness tear and retraction of the superior aspect with partial tearing and tendinopathy of the inferior aspect. At this point a 4.0 mm shaver was used to debride the subscapularis tendon, the supraspinatus remnant, the superior aspect of the infraspinatus as well as the superior labrum. Arthroscopic scissors were then used to perform a biceps tenotomy. The residual tendon as well as the stump were lightly debrided with shaver. Attention was then turned to the subacromial space. An accessory posterolateral portal was established using a spinal needle for guidance. Interrupted shaver was used to perform a subacromial bursectomy to allow us better visualization of the extent of the rotator cuff tear. An additional anterolateral accessory portal was established using spinal needle for guidance. Viewing through the posterior lateral portal, a cuff grasper was used to grab the residual supraspinatus tendon retracted medial to the glenoid. This demonstrated minimal mobility and significant scarring in to the surrounding tissue. A combination of the grasper and a probe were used to attempt to free up the tendon but even after doing this the tendon had minimal mobility and was of poor tissue quality. It was determined at this point that the rotator cuff could not be repaired. At this point we felt there was nothing else to address and the arthroscopic fluid was evacuated from the shoulder and all arthroscopic instruments and cannulas removed. The portal sites were closed with interrupted nylon. Dressings consisting of Xeroform, 4 x 4, ABD, soft roll, and tape were applied. All sponge, needle, blade, and instrument counts were correct prior to closing the wounds. The patient was awoken and transferred to the postanesthesia care unit in stable condition.
[2017-11-23 13:07] VITALS: BP 100/56
== END 2017-11-23 07:55 | disposition home or self-care (01) ==
LOC: AMB 07:54
PROVIDERS: ATTEND Orthopaedic Surgery
PROC: 0LB24ZZ Excision of Left Shoulder Tendon, Percutaneous Endoscopic Approach (ICD-10-PCS; principal; 2017-11-23)
PROC: 0LS24ZZ Reposition Left Shoulder Tendon, Percutaneous Endoscopic Approach (ICD-10-PCS; 2017-11-23)
DX: S46.012A Strain of muscle(s) and tendon(s) of the rotator cuff of left shoulder, initial encounter (principal); S43.432A Superior glenoid labrum lesion of left shoulder, initial encounter; M75.22 Bicipital tendinitis, left shoulder; Z87.891 Personal history of nicotine dependence; E11.9 Type 2 diabetes mellitus without complications; K21.9 Gastro-esophageal reflux disease without esophagitis; Z86.73 Personal history of transient ischemic attack (TIA), and cerebral infarction without residual deficits

== ENCOUNTER 2018-01-11 20:11 | Observation (INO) ==
[2018-01-11] MEDS ORDERED: NORMAL SALINE 1,000 ML IV PRN (20:22)
[2018-01-11] MEDS ORDERED: ONDANSETRON HCL/PF 2 MG/ML VIAL IV ONE (20:22)
[2018-01-11] MEDS ORDERED: ONDANSETRON HCL/PF 2 MG/ML VIAL ONE (20:27)
--- NOTE | 2018-01-11 20:29 | ERNOTE ---
Head Injury HPI - Narrative Date of Service: 01/11/18 - General Injury to: head Time Seen by Provider: 01/11/18 20:21 Source: patient - Immun/Allergies/Home Medications Immunization: IMMUNIZATION HX Immunizations Up to Date Yes History of Influenza Vaccine Yes Hx Pneumococcal Vaccination Yes Allergies/Adverse Reactions: Allergies Allergy/AdvReac Type Severity Reaction Status Date / Time No Known Allergies Allergy Verified 12/29/17 15:31 Home Medications: HOME MEDICATIONS Glimepiride [Amaryl] 4 mg PO DAILY@0700 11/28/14 [Last Taken Unknown] Insulin Glargine,Hum.rec.anlog [Lantus] 30 units SQ BID 11/28/14 [Last Taken Unknown] Carbidopa/Levodopa Cr 50/200 [Sinemet Cr 50/200] 1 tab PO HS 08/02/17 [Last Taken Unknown] Docusate Sodium [Stool Softener] 100 mg PO HS PRN 08/02/17 [Last Taken Unknown] clonazePAM [Klonopin] 0.5 mg PO HS 08/02/17 [Last Taken Unknown] rOPINIRole HCL [Requip] 1 mg PO TID 08/02/17 [Last Taken Unknown] Sertraline HCl [Zoloft] 25 mg PO DAILY 10/02/17 [Last Taken Unknown] Clopidogrel Bisulfate [Plavix] 75 mg PO DAILY #30 tab 10/03/17 [Last Taken Unknown] Tamsulosin HCl [Flomax] 0.4 mg PO DAILY@1830 #30 cap.sr.24h 10/03/17 [Last Taken Unknown] Aspirin [Aspirin Enteric Coated] 81 mg PO DAILY 11/22/17 [Last Taken Unknown] Bimatoprost [Lumigan] 1 drop OP HS 11/22/17 [Last Taken Unknown] Blood-Glucose Meter [Blood Glucose Monitoring] 1 each MC DAILY 11/22/17 [Last Taken Unknown] Carbidopa/Levodopa [Carbidopa-Levodopa 25-100 Tab] 2 each PO TID 11/22/17 [Last Taken Unknown] Cholecalciferol (Vitamin D3) [Vitamin D] 2,000 unit PO DAILY 11/22/17 [Last Taken Unknown] Duloxetine HCl [Cymbalta] 90 mg PO HS 11/22/17 [Last Taken Unknown] Fluticasone Propionate [Flonase] 1 spray NS DAILY 11/22/17 [Last Taken Unknown] HYDROcodone/ACETAMINOPHEN [[place] 5-325 Tablet] 1 each PO Q6H PRN #60 tablet 11/09 [Last Taken Unknown] - History of Present Illness Narrative: This is a 77-year-old male transported by EMS after a ground-level fall. The patient says that he was walking and there is a chair in the way. He says he stumbled around it and fell striking his forehead on the ground. He says he does not believe that he lost consciousness. The patient has an abrasion to his forehead. He is not complaining of a new headache. He is not complaining of numbness or tingling. Importantly, the patient was seen earlier today by his family doctor for low blood pressures. The patient has Parkinson's disease and is taking carbidopa and repair in all. He does not know if he has had trouble with autonomic instability before this. The patient also recently saw his doctor for bleeding from the left ear. I believe it was today that he saw his doctor and they pulled out some wax. They gave him some drops as they scraped the side of his ear. In addition the patient has been complaining of severe dizziness. He says this happens when he gets up and he can also just N when he is laying there in bed. The doctor examined talking to him about the possibility of middle ear problems such as Mnire's or vertigo. The patient was feeling extremely nauseated prior to falling but then did have multiple episodes of emesis after falling. He does take aspirin and Plavix. He had shoulder surgery on the left 3 weeks ago. 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 He has no chest pain shortness of breath diarrhea cough fever. No symptoms. No complaints of pain to the joints or bones. Review of Systems - Review of Systems Constitutional: Present: no symptoms reported EYE: Present: no symptoms reported ENT: Present: other Respiratory: Present: no symptoms reported Cardiology: Present: no symptoms reported Gastrointestinal/Abdominal: Present: nausea, vomiting - drainage from left ear bloody Genitourinary: Present: no symptoms reported Musculoskeletal: Present: no symptoms reported Skin: Present: other - abrasion to forehead Neurological: Present: dizziness/light-headedness, tremors Endocrine: Present: no symptoms reported, other - does have diabetes but sugars have been okay. A dinner at 6 Hematologic/Lymphatic: Present: no symptoms reported Psych: Present: no symptoms reported All Other Systems: All systems neg except as marked - Patient's Past Medical History Patient History - Medical: Anemia, Arthritis, Cataracts, Diabetes Type 2, Depression, Kidney stone, Osteoarthritis, Renal Disease Patient History - Cardiac/Respiratory: Hyperlipidemia, TIA, Other Patient History - Cancer: No Hx of Cancer Patient History - Surgical Procedures: Back Surgery, Cholecystectomy, Colonoscopy, EGD, Total Knee Replacement, Other, Orthopedic Patient History - Other: None - Family History Mother Family History - Medical: , Diabetes Type 2 Family History - Cardiac/Respiratory: No pertinent hx Family History - Cancer: Cervical Father Family History - Medical: , No pertinent hx Family History - Cardiac/Respiratory: COPD Family History - Cancer: No pertinent family hx - Social History Abuse History: No History of abuse Psych History: No pertinent hx - Immunizations Immunizations Up to Date: Yes Hx Pneumococcal Vaccination: Yes History of Influenza Vaccine: Yes Physical Exam - Physical Exam General Appearance: Present: wd/wn, alert, no apparent distress Head Exam: Present: other - the patient has a superficial abrasion to centimeters by 2 cm just to the right of the midline above the eyebrow on the right. I do not see any lacerations. Eye Exam: Normal inspection: bilateral - difficult to obtain comprehensive eye examination. The patient becomes profoundly dizzy when looking up. No nystagmus was noted. Ears, Nose, Throat: Present: other - patient has excoriation of the left auditory canal. The tympanic membrane appears normal. Normal landmarks Neck: Present: normal inspection, nontender, supple, other - cervical spine is clinically cleared Respiratory: Present: no respiratory distress, normal breath sounds, no accessory muscle use, chest nontender, lungs clear Cardiovascular/Chest: Present: regular rate, rhythm, normal peripheral pulses, other - the patient does have a bruise lateral left chest. He says this is been there since his surgery for his shoulder Peripheral Pulses: N=norm/S=strong/W=weak/B=bound/A=absent: Radial (R): Normal, Radial (L): Normal Gastrointestinal/Abdominal: Present: normal bowel sounds, nontender, nondistended, soft, no organomegaly Rectal Exam: Present: deferred Male Genitals Exam: Present: deferred Back Exam: Present: normal inspection, normal range of motion, no CVA tenderness , no vertebral tenderness Extremity Exam: Present: normal inspection, non-tender, normal range of motion, no edema Neurological Exam: Present: alert, oriented, normal mood/affect, no motor/ sensory deficits, other - I'm unable to do cerebellar testing at this time because the patient is retching. Skin Exam: Present: normal color, warm/dry, other - except the abrasion to the forehead Lymphatic Exam: Present: no adenopathy ED Progress - Results and Orders Patient's Lab Results:: I have reviewed the patient's lab results. - Vital Signs Patient's Vital Signs:: I have reviewed the patient's vital signs. - EKG EKG: other EKG read: Interp. by me - EKG is ventricular paced no other interpretation is possible - CT/Ultrasound CT/Ultrasound Narrative: CT of the head demonstrate sinusitis with no signs of acute intracranial pathology - Progress/Reassessment Progress:: Improved Progress Note-Subjective: 01/12/18 00:52 Patient says that the Benadryl actually helped a great deal with the dizziness. He says he is having trouble urinating though. Catheter was placed briefly drained 400 mL. I did not leave the catheter in as I fully expect the next time he has to urinate the Benadryl F worn off. I've spoken with Mary from the hospitalists. The patient has a very mild increase of his troponin. He will need to have repeat testing and make sure that the wound does not continue to trend up and reached a level of acute coronary syndrome Plan - Plan Plan: Admit, repeat troponins Departure Clinical Impression: Head contusion, Elevated troponin - Departure Disposition: Still a patient Condition: Good
[2018-01-11 20:39] LABS: Hematocrit 34.7 % (42.0-52.0); Hemoglobin 11.8 gm/dL (13.5-18.0); Mean Corpuscular Hemoglobin 28.9 pg (27-31); Neutrophil # 2.5 K/mm3 (1.3-6.0); Neutrophil % 40.4 % (42-75.0); Platelet Count 204 K/mm3 (150-450); Red Blood Count 4.08 M/mm3 (4.7-6.0); Red Cell Distribution Width 16.3 % (11.5-14.0); White Blood Count 6.1 K/mm3 (4.0-10.5)
[2018-01-11 20:57] LABS: Albumin * 3.9 gm/dl (3.4-5.0); Anion Gap 15.4 mmol/L (6.8-13.8); BUN/Creatinine Ratio 17.1 (9.0-21.6); Bilirubin, Total 1.4 mg/dL (0.0-1.1); Calcium * 9.2 mg/dL (7.9-10.9); Carbon Dioxide 25.9 mmol/L (24-32.6); Potassium 4.3 mmol/L (3.4-4.6); Total Protein 7.4 gm/dL (6.2-8.2)
[2018-01-11 20:59] LABS: Troponin I 0.022 ng/ml (0.00-0.10)
[2018-01-11] MEDS ORDERED: diphenhydrAMINE HCL 50 MG/ML VIAL IV ONE (21:12)
[2018-01-11] MEDS ORDERED: diphenhydrAMINE HCL 50 MG/ML VIAL ONE (21:13)
[2018-01-11] MEDS: ACETAMINOPHEN 500 MG TABLET PO ONE ×2 (21:17→21:39)
[2018-01-11 23:42] LABS: Urine Bilirubin Negative (NEGATIVE); Urine Blood Negative /ul (NEGATIVE); Urine Ketone Negative (NEGATIVE); Urine Nitrite Negative (NEGATIVE); Urine Protein Negative (NEGATIVE); Urine Specific Gravity 1.025 SP.GR. (1.005-1.030); Urine Urobilinogen Normal (NORMAL); Urine pH 5.5 pH (5.0-7.0)
[2018-01-12 00:07] LABS: Urine Amorphous Sediment Few - 1+ (NONE-FEW); Urine Appearance Slightly Cloudy (CLEAR); Urine Bacteria 3+; Urine Color Yellow; Urine RBC None Seen /hpf (0-5); Urine WBC 0-5 /hpf (0-5)
--- NOTE | 2018-01-12 02:01 | HP ---
Chief Complaint - Chief Complaint Date of Service: 01/12/18 Time of Service: 02:01 Chief Complaint: " Nausea, fall'. Source of HPI- Pt;reliable, Pt's spouse- Yeimi, CARLEEN report. History of Present Illness: Mr. Snyder is a 77-yr-old WM pt of Dr. Tk Mckeon with a PMH of: Athritis , BPH, Depression, DM II, GERD, Glaucoma, HLD, Kidney stones, Parkinson's & TIA. Pt states that he suddenly developed the sensation of nausea and while trying to ford to the sink to vomit, his foot tripped on the carpet leading him to lose balance. He fell striking his his head on the furniture. could not assist him from the fall and therefore called the EMS. There was no loss of consciousness with the fall. The pt denies feeling dizzy or light headed prior to the fall, and he recalls the moment of falling. Family report that he vomited several times en route to the hospital and while at the ED. Pt denies the associated symptoms of Abdominal pain/tenderness, diarrhea fevers and chills. ERP reported that pt's vomiting seemed to be elicited with any changing positions and with instructions of upward gazing of eyes. Spouse report that pt woke up on the night of 01/10/18 with blood oozing from his LT ear. He saw his PCP the following day on 01/11/18 and he was referred to Dr. Bailey ( ENT) who saw him on that day also. He states that there was nothing wrong found except for minor irritation on the ear, and he was started on antibiotic ear drops. At the ED tonight, CT of the head did not indicate any acute findings. Laboratory studies were mostly unremarkable except for BUN/CR--> 27/1.58, Troponin--> 0.022 -->0.041. The EKG showed ventricular pacing. Due to the troponin trending up, it was felt necessary to admit pt under observation status for repeat Troponin to ensure it did not rise to a level that could cause concern for ACS/KS. Also because of pt's vomiting associated with movement, it likely that he may be experiencing BPPV and will need to be monitored & evaluated for appropriate interventions. - Patient's Past Medical History Patient History - Medical: Anemia, Arthritis, Cataracts, Diabetes Type 2, Depression, Kidney stone, Osteoarthritis, Renal Disease Patient History - Cardiac/Respiratory: Hyperlipidemia, TIA, Other Patient History - Cancer: No Hx of Cancer Patient History - Surgical Procedures: Back Surgery, Cholecystectomy, Colonoscopy, EGD, Total Knee Replacement, Other, Orthopedic Patient History - Other: None - Family History Mother Family History - Medical: , Diabetes Type 2 Family History - Cardiac/Respiratory: No pertinent hx Family History - Cancer: Cervical Father Family History - Medical: , No pertinent hx Family History - Cardiac/Respiratory: COPD Family History - Cancer: No pertinent family hx - Social History Living Situations: home Abuse History: No History of abuse Psych History: No pertinent hx Smoking Status: Never smoker Alcohol Use: none Drug Use: none - Immunizations Immunizations Up to Date: Yes Hx Pneumococcal Vaccination: Yes History of Influenza Vaccine: Yes Review Of Systems (GEN) - Review of Systems Generalized/Overall Review: Present: Weakness. Absent: Chills, Fever, Malaise EENTM: Present: Ear Discharge - LT ear. Absent: Eye Pain, Blurred Vision, Double Vision, Nose Congestion Respiratory: Absent: Cough, Shortness of Breath Cardiac: Absent: Chest Pain, Edema, Palpitations Abdominal: Present: Nausea, Vomiting. Absent: Abdominal Pain, Constipation, Diarrhea, Melena Genitourinary: Present: Hesitancy, Retention. Absent: Burning, Itching Musculoskeletal: Absent: Joint Pain, Back Pain, Joint Swelling Neurological: Present: Weakness. Absent: Headache, Anxiety, Emotional Problems , Numbness Skin: Absent: Dryness, Lesions, Bruising Endocrine: Present: Intolerance to Cold. Absent: Increased Hunger, Increased Thirst Misc: All systems neg except as marked Allergies/Adverse Reactions: Allergies Allergy/AdvReac Type Severity Reaction Status Date / Time No Known Allergies Allergy Verified 12/29/17 15:31 Home Medications: HOME MEDICATIONS Glimepiride [Amaryl] 4 mg PO DAILY@0700 11/28/14 [Last Taken 01/11/18 08:00] Insulin Glargine,Hum.rec.anlog [Lantus] 25 units SQ BID 11/28/14 [Last Taken 08:00] Carbidopa/Levodopa Cr 50/200 [Sinemet Cr 50/200] 1 tab PO HS 08/02/17 [Last Taken 01/10/18 21:00] Docusate Sodium [Stool Softener] 400 mg PO HS PRN 08/02/17 [Last Taken Unknown] clonazePAM [Klonopin] 0.5 mg PO HS 08/02/17 [Last Taken 01/10/18 21:00] rOPINIRole HCL [Requip] 0.5 mg PO TID 08/02/17 [Last Taken 01/11/18 18:00] Sertraline HCl [Zoloft] 25 mg PO DAILY 10/02/17 [Last Taken 01/11/18 08:00] Clopidogrel Bisulfate [Plavix] 75 mg PO DAILY #30 tab 10/03/17 [Last Taken 01/11 08:00] Tamsulosin HCl [Flomax] 0.4 mg PO DAILY@1830 #30 cap.sr.24h 10/03/17 [Last Taken 01/11/18 18:30] Aspirin [Aspirin Enteric Coated] 81 mg PO DAILY 11/22/17 [Last Taken 01/11/18 08 :00] Bimatoprost [Lumigan] 1 drop OP HS 11/22/17 [Last Taken 01/10/18 21:00] Blood-Glucose Meter [Blood Glucose Monitoring] 1 each MC DAILY 11/22/17 [Last Taken Unknown] Carbidopa/Levodopa [Carbidopa-Levodopa 25-100 Tab] 2 each PO TID 11/22/17 [Last Taken 01/11/18 18:00] Cholecalciferol (Vitamin D3) [Vitamin D] 2,000 unit PO DAILY 11/22/17 [Last Taken 01/11/18 08:00] Duloxetine HCl [Cymbalta] 90 mg PO HS 11/22/17 [Last Taken 01/10/18 21:00] Fluticasone Propionate [Flonase] 1 spray NS DAILY 11/22/17 [Last Taken Unknown] HYDROcodone/ACETAMINOPHEN [[place] 5-325 Tablet] 1 each PO Q6H PRN #60 tablet 11/09 [Last Taken 01/09/18 20:00] Rosuvastatin Calcium [Crestor] 20 mg PO HS 01/12/18 [Last Taken 01/10/18 21:00] Exam - Exam Vital Signs: Vital Signs - Last Taken Temp 36.4 C L 01/11/18 20:14 Pulse 60 01/12/18 01:28 Resp 18 01/12/18 01:28 BP 123/52 01/12/18 01:28 Pulse Ox 98 01/12/18 01:28 Constitutional: Present: Alert, Oriented x3, Cooperative, No distress ENT Exam: Present: hearing grossly normal, dry mucous membranes Eye Exam: bilateral eye: normal inspection, PERRL Neck: Present: non-tender, full range of motion, supple Back Exam: Present: normal inspection Breasts: Present: Exam deferred Respiratory: Present: no accessory muscle use, No rales, No wheezing Cardiovascular/Chest: Present: normal peripheral pulses, regular rate, rhythm, no chest tenderness Abdomen: Present: Normal bowel sounds, soft, nontender /Rectal: Present: Exam deferred Extremity: Present: normal range of motion, non-tender, normal inspection, no pedal edema Skin Exam: Present: warm/dry, other - Abrasion on RT forehead Lymphatic: Present: no adenopathy Neurologic: Present: no motor/sensory deficits, alert, oriented x 3 Appearance: Present: appropriate appearance, appropriate insight Eye contact: Present: cooperative, good eye contact, normal speech Thoughts: Present: normal thought pattern, no apparent hallucination Diagnostic Studies: Laboratory Results WBC 6.1 K/mm3 (4.0-10.5) D 01/11/18 20:38 RBC 4.08 M/mm3 (4.7-6.0) L 01/11/18 20:38 Hgb 11.8 gm/dL (13.5-18.0) L 01/11/18 20:38 Hct 34.7 % (42.0-52.0) L 01/11/18 20:38 MCV 85.0 fl (78-100) 01/11/18 20:38 MCH 28.9 pg (27-31) 01/11/18 20:38 MCHC 34.0 g/dl (32-36) 01/11/18 20:38 RDW 16.3 % (11.5-14.0) H 01/11/18 20:38 Plt Count 204 K/mm3 (150-450) 01/11/18 20:38 MPV 9.0 fl (6.0-9.5) 01/11/18 20:38 Immature Gran % (Auto) 0.30 % (0.001-0.429) 01/11/18 20:38 Immature Gran # (Auto) 0.02 K/mm3 (0.000-0.0310) 01/11/18 20:38 Neutrophils % 40.4 % (42-75.0) L 01/11/18 20:38 Lymphocytes % 44.1 % (20-51) 01/11/18 20:38 Monocytes % 9.0 % (0.0-9) 01/11/18 20:38 Eosinophils % 5.7 % (0.0-3.0) H 01/11/18 20:38 Basophils % 0.5 % (0.0-1.0) 01/11/18 20: Nucleated RBC % 0.0 k/mm3 (0-1) 01/11/18 20:38 Neutrophils # 2.5 K/mm3 (1.3-6.0) 01/11/18 20:38 Lymphocytes # 2.71 k/mm3 (1.5-3.5) 01/11/18 20: Monocytes # 0.6 k/mm3 (0.0-1.0) 01/11/18 20:38 Eosinophils # 0.4 k/mm3 (0.0-0.7) 01/11/18 20:38 Absolute Basophils 0.0 k/mm3 (0.0-0.1) 01/11/18 20:38 Sodium 139 mmol/L (132-142) 01/11/18 20:38 Plasma Sodium 140 mmol/L (130-142) 01/11/18 20:38 Potassium 4.3 mmol/L (3.4-4.6) 01/11/18 20:38 Chloride 102 mmol/L (97-106) 01/11/18 20:38 Carbon Dioxide 25.9 mmol/L (24-32.6) 01/11/18 20:38 Anion Gap 15.4 mmol/L (6.8-13.8) H 01/11/18 20:38 BUN 27 mg/dL (6-23) H 01/11/18 20:38 Creatinine 1.58 mg/dL (0.4-1.4) H 01/11/18 20:38 Est GFR (Non-Af Amer) 45 mL/min (60-130) L 01/11/18 20:38 BUN/Creatinine Ratio 17.1 (9.0-21.6) 01/11/18 20:38 Random Glucose 167 mg/dL (70-110) H 01/11/18 20:38 Calcium 9.2 mg/dL (7.9-10.9) 01/11/18 20:38 Calcium Adj for Albumin 9.0 mg/dL (8.4-10.2) 01/11/18 20:38 Total Bilirubin 1.4 mg/dL (0.0-1.1) H 01/11/18 20:38 AST 14 U/L (0-48) 01/11/18 20:38 ALT 7 U/L (19-67) L 01/11/18 20:38 Alkaline Phosphatase 111 U/L (50-170) 01/11/18 20:38 Troponin I 0.041 ng/ml (0.00-0.10) 01/11/18 22:35 Total Protein 7.4 gm/dL (6.2-8.2) 01/11/18 20:38 Albumin 3.9 gm/dl (3.4-5.0) 01/11/18 20:38 Urine Color Yellow 01/11/18 23:08 Urine Appearance Slightly cloudy (CLEAR) 01/11/18 23:08 Urine pH 5.5 pH (5.0-7.0) 01/11/18 23:08 Ur Specific [place] 1.025 SP.GR. (1.005-1.030) 01/11/18 23:08 Urine Protein Negative mg/dL (NEGATIVE) 01/11/18 23:08 Urine Glucose (UA) Negative mg/dL (NEGATIVE) 01/11/18 23:08 Urine Ketones Negative mg/dL (NEGATIVE) 01/11/18 23:08 Urine Blood Negative /ul (NEGATIVE) 01/11/18 23:08 Urine Nitrate Negative (NEGATIVE) 01/11/18 23:08 Urine Bilirubin Negative mg/dl (NEGATIVE) 01/11/18 23:08 Urine Urobilinogen Normal EU/dl (NORMAL) 01/11/18 23:08 Ur Leukocyte Esterase Negative /ul (NEGATIVE) 01/11/18 23:08 Urine RBC None seen /hpf (0-5) 01/11/18 23:08 Urine WBC 0-5 /hpf (0-5) 01/11/18 23:08 Ur Epithelial Cells None seen /hpf (0-5) 01/11/18 23:08 Amorphous Sediment Few - 1+ (NONE-FEW) 01/11/18 23:08 Urine Bacteria 3+ (NONE) H 01/11/18 23:08 Urine Culture Comments No culture indicated 01/11/18 23:08 Assessment/Plan - Assessment/Plan (1) Anginal equivalent Assessment: Pt reported to have profuse vomiting, however no SOB, Chest pain/pressure, Diaphoresis, palpitations. Tropopin noted to be trending up but is within the threshold. EKG- ventricular paced. He will need repeat Troponin to ensure this does not evolve to ACS/KS. He will be placed on Telemetry monitoing. Will plan to discharge if the third troponin is negative. Laboratory Tests 01/11/18 01/11/18 20:38 22:35 Troponin I 0.022 0.041 Problem: Acute (2) Vertigo Assessment: Pt does not give a detailed explanation of how he feels with sensation, and denies feeling dizzy or lightheaded. He has unsteady gait from Parkinson's. However, Pt was reported to have nausea/vomiting associated with motion therefore Meniere's or BPPV is likely. It possible that he may have Labyrinthitis given especially given that symptoms of vomiting was elicited with gazing upward. Vestibular suppressants include anticholinergics, antihistamines and benzos. Antiemetics can help suppress the nausea. Will monitor overnight. May consider starting him on Meclizine & Zofran. If bacterial labyrinthitis is suspceted, then he will require IV antibiotics. May need to consult ENT. Problem: Acute (3) Acute kidney injury Assessment: Is likely pre-renal due to GI losses from vomiting. Hydrate with IVF. BMP in am. Laboratory Tests 10/02/17 01/11/18 01/11/18 12:35 12:15 20:38 Creatinine 1.23 1.37 1.58 H Problem: Acute (4) Diabetes Assessment: Stable- Consistent carb diet, Lantus and Glimeperide. Problem: Chronic Qualifiers: Diabetes mellitus type: type 2 (5) GERD (gastroesophageal reflux disease) Problem: Chronic (6) BPH associated with nocturia Problem: Chronic (7) Parkinson disease Problem: Chronic
[2018-01-12] MEDS ORDERED: NORMAL SALINE 1,000 ML IV PRN (02:02)
[2018-01-12] MEDS ORDERED: DOCUSATE SODIUM 100 MG CAPSULE PO PRN (02:50)
[2018-01-12] MEDS: NORMAL SALINE 1,000 ML IV PRN ×2 (02:59→10:56)
[2018-01-12] MEDS ORDERED: INSULIN GLARGINE,HUM.REC.ANLOG 100 UNITS/ML VIAL SC SCH (03:00)
[2018-01-12] MEDS ORDERED: INSULIN GLARGINE,HUM.REC.ANLOG 100 UNITS/ML VIAL SC ONE (04:02)
[2018-01-12] MEDS: INSULIN GLARGINE,HUM.REC.ANLOG 100 UNITS/ML VIAL SC SCH ×3 (04:07→20:19)
[2018-01-12 05:55] LABS: Anion Gap 12.1 mmol/L (6.8-13.8); Calcium * 8.6 mg/dL (7.9-10.9); Carbon Dioxide 26.9 mmol/L (24-32.6); Estimated Creat Clear 38.5; Troponin I 0.054 ng/ml (0.00-0.10)
[2018-01-12] MEDS: ASPIRIN 81 MG TABLET.DR PO SCH (08:59)
[2018-01-12] MEDS: CLOPIDOGREL BISULFATE 75 MG TABLET PO SCH (08:59)
[2018-01-12] MEDS: CHOLECALCIFEROL 1,000 UNIT CAPSULE PO SCH (08:59)
[2018-01-12] MEDS: CARBIDOPA/LEVODOPA 25/100 1 TAB TABLET PO SCH ×3 (08:59→17:58)
[2018-01-12] MEDS: rOPINIRole HCL 1 MG TABLET PO SCH ×3 (08:59→17:58)
[2018-01-12] MEDS: GLIMEPIRIDE 4 MG TABLET PO SCH (08:59)
[2018-01-12] MEDS: SERTRALINE HCL 50 MG TABLET PO SCH (09:00)
[2018-01-12] MEDS ORDERED: TAMSULOSIN HCL 0.4 MG CAP.SR.24H PO SCH (18:30)
[2018-01-12] MEDS: HYDROcodone/ACETAMINOPHEN 1 EACH TABLET PO PRN (20:22)
[2018-01-12] MEDS ORDERED: clonazePAM 0.5 MG TABLET PO SCH (21:00)
[2018-01-12] MEDS ORDERED: BIMATOPROST 25 DROP BTL OP SCH (21:00)
[2018-01-12] MEDS ORDERED: CARBIDOPA/LEVODOPA CR 50/200 1 TAB TABLET.SA PO SCH (21:00)
[2018-01-12] MEDS ORDERED: ROSUVASTATIN CALCIUM 20 MG TABLET PO SCH (21:00)
[2018-01-13] MEDS: HYDROcodone/ACETAMINOPHEN 1 EACH TABLET PO PRN (07:04)
[2018-01-13] MEDS: GLIMEPIRIDE 4 MG TABLET PO SCH (07:09)
[2018-01-13] MEDS: SERTRALINE HCL 50 MG TABLET PO SCH (09:34)
[2018-01-13] MEDS: CARBIDOPA/LEVODOPA 25/100 1 TAB TABLET PO SCH (09:34)
[2018-01-13] MEDS: CHOLECALCIFEROL 1,000 UNIT CAPSULE PO SCH (09:34)
[2018-01-13] MEDS: ASPIRIN 81 MG TABLET.DR PO SCH (09:34)
[2018-01-13] MEDS: rOPINIRole HCL 1 MG TABLET PO SCH (09:39)
[2018-01-13] MEDS: CLOPIDOGREL BISULFATE 75 MG TABLET PO SCH (09:40)
[2018-01-13] MEDS: INSULIN GLARGINE,HUM.REC.ANLOG 100 UNITS/ML VIAL SC SCH (09:40)
[2018-01-13 09:44] LABS: Albumin * 3.4 gm/dl (3.4-5.0); Anion Gap 12.2 mmol/L (6.8-13.8); BUN/Creatinine Ratio 16.8 (9.0-21.6); Bilirubin, Total 0.7 mg/dL (0.0-1.1); Ca. Corrected For Albumin 8.9 mg/dL (8.4-10.2); Calcium * 8.7 mg/dL (7.9-10.9); Carbon Dioxide 26.3 mmol/L (24-32.6); Potassium 4.5 mmol/L (3.4-4.6); Total Protein 6.6 gm/dL (6.2-8.2)
[2018-01-13 09:45] LABS: Troponin I 0.057 ng/ml (0.00-0.10)
--- NOTE | 2018-01-13 10:07 | DS ---
(1) Chest wall pain Problem: Acute Description of Stay: Juancarlos is a 77 yo male admitted for chest pain. His initial evaluation was negative for acute CA. He was admitted on telemetry and had serial troponins, there was no evidence of acute CA and it is suspected that his chest pain was musculoskeletal. He was discharged to home without changes. Procedures Performed: none Discharge Location: Home Disposition: Home self-care Condition: Good Discharge Activity: Activity as tolerated Discharge Diet: Consistent carbs Referrals: Judson Bullard DO [Staff Physician] - One Week Problem Oriented Discharge Instructions to Patient/Family: Chest Pain Observation Additional Patient Instructions (free text): -Please make TCM appointment unless long term discharge. Thank you! Elise @ [employer] [id number]. Prescriptions (Any new or edited meds): HYDROcodone/ACETAMINOPHEN [[place] 5-325 Tablet] 1 each PO Q12H PRN #60 tablet PRN Reason: Pain Complete Home Medications List: Complete Home Medication List: Glimepiride [Amaryl] 4 mg PO DAILY@0700 11/28/14 Insulin Glargine,Hum.rec.anlog [Lantus] 25 units SQ BID 11/28/14 Carbidopa/Levodopa Cr 50/200 [Sinemet Cr 50/200] 1 tab PO HS 08/02/17 Docusate Sodium [Stool Softener] 400 mg PO HS PRN 08/02/17 clonazePAM [Klonopin] 0.5 mg PO HS 08/02/17 rOPINIRole HCL [Requip] 0.5 mg PO TID 08/02/17 Sertraline HCl [Zoloft] 25 mg PO DAILY 10/02/17 Clopidogrel Bisulfate [Plavix] 75 mg PO DAILY #30 tab 10/03/17 Tamsulosin HCl [Flomax] 0.4 mg PO DAILY@1830 #30 cap.sr.24h 10/03/17 Aspirin [Aspirin Enteric Coated] 81 mg PO DAILY 11/22/17 Bimatoprost [Lumigan] 1 drop OP HS 11/22/17 Blood-Glucose Meter [Blood Glucose Monitoring] 1 each MC DAILY 11/22/17 Carbidopa/Levodopa [Carbidopa-Levodopa 25-100 Tab] 2 each PO TID 11/22/17 Cholecalciferol (Vitamin D3) [Vitamin D3] 2,000 unit PO DAILY 11/22/17 Duloxetine HCl [Cymbalta] 90 mg PO HS 11/22/17 Fluticasone Propionate [Flonase] 1 spray NS DAILY 11/22/17 Rosuvastatin Calcium [Crestor] 20 mg PO HS 01/12/18 HYDROcodone/ACETAMINOPHEN [[place] 5-325 Tablet] 1 each PO Q12H PRN #60 tablet
[2018-01-13 11:22] VITALS: BP 136/58
== END 2018-01-13 11:30 | disposition home or self-care (01) ==
LOC: ER 20:11 → MS 01-12 00:58
PROVIDERS: ADMIT Nurse Practitioner; ATTEND Internal Medicine
DX: E78.5 Hyperlipidemia, unspecified; R78.89 Finding of other specified substances, not normally found in blood; N40.1 Benign prostatic hyperplasia with lower urinary tract symptoms; R07.89 Other chest pain; Z79.4 Long term (current) use of insulin; W01.190A Fall on same level from slipping, tripping and stumbling with subsequent striking against furniture, initial encounter; R11.2 Nausea with vomiting, unspecified; E11.9 Type 2 diabetes mellitus without complications; R35.1 Nocturia; Y92.018 Other place in single-family (private) house as the place of occurrence of the external cause; K21.9 Gastro-esophageal reflux disease without esophagitis; H81.10 Benign paroxysmal vertigo, unspecified ear; N17.9 Acute kidney failure, unspecified
CPT/HCPCS: 36415; 70450; 80048; 80053; 81001; 84484; 85025; 93005; 96361; 96372; 96374; 96375; 99284; G0378; J2405

== ENCOUNTER 2018-08-04 17:47 | Inpatient (IN) | payer MEDICARE ==
--- NOTE | 2018-08-04 18:16 | ERNOTE ---
Medical Problem HPI - General Chief Complaint: General Assessment Time Seen by Provider: 08/04/18 17:47 Source: patient, family Exam Limitations: no limitations - Immun/Allergies/Home Medications Immunizations: IMMUNIZATION HX Immunizations Up to Date Yes History of Influenza Vaccine No Hx Pneumococcal Vaccination Yes Allergies/Adverse Reactions: Allergies No Known Allergies Allergy (Verified 08/04/18 17:54) Home Medications: HOME MEDICATIONS Glimepiride [Amaryl] 4 mg PO DAILY@1200 11/28/14 [Last Taken 01/11/18 08:00] Carbidopa/Levodopa Cr 50/200 [Sinemet Cr 50/200] 1 tab PO HS 08/02/17 [Last Taken 01/10/18 21:00] Docusate Sodium [Stool Softener] 400 mg PO HS 08/02/17 [Last Taken Unknown] rOPINIRole HCL [Requip] 0.5 mg PO TID 08/02/17 [Last Taken 01/11/18 18:00] Aspirin [Aspirin Enteric Coated] 81 mg PO DAILY 11/22/17 [Last Taken 01/11/18 08:00] Bimatoprost [Lumigan] 1 drp OP HS 11/22/17 [Last Taken 01/10/18 21:00] Blood-Glucose Meter [Blood Glucose Monitoring] 1 ea MC DAILY 11/22/17 [Last Taken Unknown] Carbidopa/Levodopa [Carbidopa-Levodopa 25-100 Tab] 2 ea PO TID 11/22/17 [Last Taken 01/11/18 18:00] Cholecalciferol (Vitamin D3) [Vitamin D3] 2,000 unit PO DAILY 11/22/17 [Last Taken 01/11/18 08:00] blood sugar diagnostic strips See Dose Instructions .ROUTE .MEDSUPPLY #20 ea 06/28/18 [Last Taken Unknown] blood-glucose meter See Dose Instructions .ROUTE .MEDSUPPLY #1 ea 06/28/18 [Last Taken Unknown] insulin degludec (U-100) 100 unit/mL (3 mL) subcutaneous pen 30 unit SUB-Q DAILY 06/28/18 [Last Taken Unknown] pen needle, diabetic 31 gauge x 3/16" See Dose Instructions .ROUTE .MEDSUPPLY #30 ea 06/28/18 [Last Taken Unknown] sertraline 25 mg tablet 50 mg PO HS tab 07/03/18 [Last Taken Unknown] clopidogrel 75 mg tablet 75 mg PO DAILY #30 tab 07/17/18 [Last Taken Unknown] Apixaban [Eliquis] 5 mg PO BID 08/01/18 [Last Taken Unknown] Atorvastatin Calcium 40 mg PO HS 08/01/18 [Last Taken Unknown] Furosemide [Lasix] 80 mg PO BID 08/01/18 [Last Taken Unknown] Metoprolol Succinate 25 mg PO DAILY 08/01/18 [Last Taken Unknown] Pantoprazole Sodium [Protonix] 40 mg PO DAILY 08/01/18 [Last Taken Unknown] Polyethylene Glycol 3350 [Miralax] 17 gm PO DAILY 08/01/18 [Last Taken Unknown] rOPINIRole HCL [Requip] 1 mg PO HS 08/01/18 [Last Taken Unknown] Clopidogrel Bisulfate [Plavix] 75 mg PO DAILY 08/04/18 [Last Taken Unknown] - History of Present History Narrative: Patient is coming from the [facility] for fever and vomiting. The patient had a stent placed at [facility], was transferred to [facility] for pacemaker/defibrillator placement on 07/25. While there he developed urinary retention and had a choudhury placed. Three days ago he came to the ER for hematuria and a hematoma around his pacemaker and was found to be bradycardic with the pacemaker not capturing and t ransferred back to the [facility]. According his he came back to the [facility] yesterday. Today he was noticed to have a temp up to 100.6, blood sugar 508, not feeling well and vomiting. Patient states that he doesn't feel well, denies any pain, states that he is nauseated but denies vomiting Review of Systems - Review of Systems Constitutional: Present: recent illness, fever, chills, fatigue, malaise Respiratory: Absent: shortness of breath, cough Cardiology: Absent: chest pain Gastrointestinal/Abdominal: Present: nausea. Absent: diarrhea, abdominal pain Genitourinary: Present: other - inwelling choudhury uncomfortable Neurological: Present: weakness - generalized. Absent: headache Endocrine: Present: increased thirst Medical History (Last Reviewed 08/04/18 @ 18:13 by Rose Mary Trujillo MD) Pneumonia (Acute) Onset Date: ~2007 Parkinson disease (Chronic) Onset Date: Unknown Osteoarthritis (Chronic) Onset Date: ~02/24/95 Hyperlipidemia (Chronic) Onset Date: Unknown Glaucoma (Chronic) Onset Date: Unknown GERD (gastroesophageal reflux disease) (Chronic) Onset Date: Unknown H/O echocardiogram (Acute) Onset Date: ~12/20/17 Diabetes (Chronic) Onset Date: ~08/19/14 Depression (Chronic) Onset Date: ~04/04/13 Complete tear of left rotator cuff (Resolved) Onset Date: Unknown BPH (benign prostatic hyperplasia) (Chronic) Onset Date: Unknown TIA (transient ischemic attack) Onset Date: ~06/10/98 Surgical History: Surgical History (Last Reviewed 08/04/18 @ 18:13 by Rose Mary Trujillo MD) Pacemaker (Acute) Onset Date: ~11/2017 Kidney stones (Resolved) Onset Date: ~08/2007 Cataract Onset Date: ~07/30/12 H/O meniscectomy of right knee Onset Date: ~04/2006 History of arthroscopy of shoulder Onset Date: ~11/23/17 History of carpal tunnel release Onset Date: ~12/28/00 History of esophagogastroduodenoscopy Onset Date: ~04/28/11 History of revision of total replacement of right knee joint Onset Date: ~03/30/10 Hx laparoscopic cholecystectomy Onset Date: ~03/13/13 Hx of arthroscopic knee surgery Onset Date: ~04/2006 Hx of colonoscopy Onset Date: ~03/01/11 Previous back surgery Onset Date: ~2009 Family History: Family History (Last Reviewed 07/12/18 @ 09:28 by Madelyn Schwartz RN) Brother Diabetes COPD (chronic obstructive pulmonary disease) Emphysema lung Father COPD (chronic obstructive pulmonary disease) Mother Cancer Sister Diabetes CVA (cerebral vascular accident) Social History: Preferred Language Frisian Smoking Status Former smoker Abuse History No History of abuse Psych History No pertinent hx Alcohol Use none Drug Use none Physical Exam - Physical Exam General Appearance: Present: wd/wn, alert, no apparent distress, other - looks like he doesn't feel well Head Exam: Present: normal inspection Eye Exam: Normal inspection: bilateral, PERRL: bilateral Respiratory: Present: no respiratory distress, normal breath sounds, no accessory muscle use, lungs clear Cardiovascular/Chest: Present: regular rate, rhythm, no murmur Gastrointestinal/Abdominal: Present: normal bowel sounds, nontender, nondistended, soft Back Exam: Present: no CVA tenderness Extremity Exam: Present: no edema Neurological Exam: Present: alert, oriented, normal mood/affect, no motor/sensory deficits Skin Exam: Present: normal color, warm/dry ED Progress - Results and Orders Patient's Lab Results:: I have reviewed the patient's lab results. - Vital Signs Patient's Vital Signs:: I have reviewed the patient's vital signs. Vital Signs: Vital Signs 08/04/18 17:50 08/04/18 17:59 Temperature 37.9 C Pulse Rate 68 74 Respiratory Rate 12 27 H Blood Pressure 117/36 O2 Sat by Pulse Oximetry 97 94 - EKG EKG: other - ventricular pacing, HR 73 EKG read: Interp. by me - Progress/Reassessment Chief Complaint: General Assessment Progress Note-Subjective: 08/04/18 19:13 discussed test results with patient and family, recommended admission, patient agreed patient has fever, vomited at the care center has elevated WBC doesn't quite meet SIRS or sepsis criteria 08/04/18 19:14 discussed with jennifer Ruvalcaba to admit for observation, start rocephin, insulin sliding scale moderate protocol Departure Clinical Impression: UTI (urinary tract infection) Qualifiers: Urinary tract infection type: catheter-associated UTI Indwelling urinary catheter type: indwelling urethral catheter Encounter type: initial encounter Qualified Code(s): T83.511A - Infection and inflammatory reaction due to indwell ing urethral catheter, initial encounter; N39.0 - Urinary tract infection, site not specified Leucocytosis Qualifiers: Leukocytosis type: unspecified Qualified Code(s): D72.829 - Elevated white blood cell count, unspecified - Departure Disposition: Still a patient Condition: Stable Referrals: Elise Gallo DO [Primary Care Provider] -
[2018-08-04 18:27] LABS: Hematocrit 24.2 % (42.0-52.0); Mean Cell Volume 86.4 fl (78-100); Mean Corpuscular Hemoglobin 28.6 pg (27-31); Mean Corpuscular Hgb Conc 33.1 g/dl (32-36); Mean Platelet Volume 9.4 fl (8-11.3); Neutrophil # 9.3 K/mm3 (1.3-6.0); Neutrophil % 80.8 % (42-75.0); Platelet Count 158 K/mm3 (150-450); Red Cell Distribution Width 18.6 % (11.5-14.0); White Blood Count 11.5 K/mm3 (4.0-10.5)
[2018-08-04 18:40] LABS: Urine Appearance Slightly Cloudy (CLEAR); Urine Color Yellow
[2018-08-04 18:40] LABS: ALT 7 U/L (19-67); AST 12 U/L (0-48); Albumin * 3.4 gm/dl (3.4-5.0); Alkaline Phosphatase * 170 U/L (50-170); Anion Gap 11.5 mmol/L (6.8-13.8); BUN/Creatinine Ratio 33.3 (9.0-21.6); Bilirubin, Total 2.7 mg/dL (0.0-1.1); Blood Urea Nitrogen 59 mg/dL (6-23); Ca. Corrected For Albumin 9.1 mg/dL (8.4-10.2); Calcium * 8.9 mg/dL (7.9-10.9); Carbon Dioxide 28.5 mmol/L (24-32.6); Chloride 93 mmol/L (97-106); Glucose * 412 mg/dL (70-110); Sodium 129 mmol/L (132-142)
[2018-08-04 18:41] LABS: Urine Bilirubin Negative (NEGATIVE); Urine Blood 250 /ul (NEGATIVE); Urine Ketone Negative (NEGATIVE); Urine Nitrite Negative (NEGATIVE); Urine Protein Negative (NEGATIVE); Urine Urobilinogen Normal (NORMAL)
[2018-08-04 18:42] LABS: Urine Bacteria 1+
[2018-08-04 18:43] LABS: Urine RBC 25-50 /hpf (0-5)
[2018-08-04 19:00] LABS: Prothrombin Time (Patient) 12.2 Seconds (9.0-11.0)
[2018-08-04 19:07] LABS: INR 1.22 INR (0.90-1.10)
[2018-08-04] MEDS ORDERED: INSULIN LISPRO 100 UNITS/ML VIAL ONE (19:42)
--- NOTE | 2018-08-04 21:18 | HP ---
Chief Complaint - Chief Complaint Date of Service: 08/04/18 Time of Service: 21:03 Chief Complaint: fever and chills History of Present Illness: Juancarlos Snyder, is a 78-year-old white male, patient of Dr. Elise Gallo, with past medical history of diabetes mellitus type 2, hyperlipidemia, pacemaker/AICD placement, BPH, who was admitted on 08/04/2010 because of fever and chills. The patient recently had coronary artery stenting placed at [facility] and then transferred to [facility] for pacemaker/defibrillator placement on 07/25/2018 . He then has to have an indwelling Charles catheter placed because of urinary retention from his BPH. 3 days prior to admission the patient was seen at our ER for hematuria. His pacemaker was also not capturing and it was felt that had hematoma around his pacemaker pocket. The patient was then transferred to [facility]. He returned to the [facility] yesterday with a 4-day-old indwelling Charles catheter. They changed the bag. Today the patient developed fever and chills with a temperature up to 100.6. His blood sugar was also elevated at 508 and he had some vomiting. He was then sent to the emergency room where he was found to have urinary tract infection and an elevated white blood cell count. Medical History (Last Updated 08/04/18 @ 21:22 by Daphne Bartholomew RN) Pneumonia (Acute) Onset Date: ~2007 Parkinson disease (Chronic) Onset Date: Unknown Osteoarthritis (Chronic) Onset Date: ~02/24/95 Hyperlipidemia (Chronic) Onset Date: Unknown Glaucoma (Chronic) Onset Date: Unknown GERD (gastroesophageal reflux disease) (Chronic) Onset Date: Unknown H/O echocardiogram (Acute) Onset Date: ~12/20/17 Diabetes (Chronic) Onset Date: ~08/19/14 Depression (Chronic) Onset Date: ~04/04/13 Complete tear of left rotator cuff (Resolved) Onset Date: Unknown BPH (benign prostatic hyperplasia) (Chronic) Onset Date: Unknown Cardiac pacemaker Onset Date: ~07/26/18 Pacemaker TIA (transient ischemic attack) Onset Date: ~06/10/98 Surgical History: Surgical History (Last Reviewed 08/04/18 @ 21:23 by Daphne Bartholomew RN) Pacemaker (Acute) Onset Date: ~11/2017 Kidney stones (Resolved) Onset Date: ~08/2007 Cataract Onset Date: ~07/30/12 H/O meniscectomy of right knee Onset Date: ~04/2006 History of arthroscopy of shoulder Onset Date: ~11/23/17 History of carpal tunnel release Onset Date: ~12/28/00 History of esophagogastroduodenoscopy Onset Date: ~04/28/11 History of revision of total replacement of right knee joint Onset Date: ~03/30/10 Hx laparoscopic cholecystectomy Onset Date: ~03/13/13 Hx of arthroscopic knee surgery Onset Date: ~04/2006 Hx of colonoscopy Onset Date: ~03/01/11 Previous back surgery Onset Date: ~2009 Family History: Family History (Last Reviewed 08/04/18 @ 21:24 by Daphne Bartholomew RN) Brother Diabetes COPD (chronic obstructive pulmonary disease) Emphysema lung Father COPD (chronic obstructive pulmonary disease) Mother Cancer Sister Diabetes CVA (cerebral vascular accident) Social History: Preferred Language Slovenian Smoking Status Former smoker Abuse History No History of abuse Psych History No pertinent hx Alcohol Use none Drug Use none Review Of Systems (GEN) - Review of Systems Generalized/Overall Review: Present: Weakness, Chills, Fever Respiratory: Absent: Cough, Shortness of Breath, Orthopnea, Wheezing Cardiac: Absent: Chest Pain, Edema, Palpitations Abdominal: Present: Nausea, Vomiting Genitourinary: Present: Urgency, Frequency Musculoskeletal: Absent: Joint Pain Immunizations: IMMUNIZATION HX Immunizations Up to Date Yes History of Influenza Vaccine No Hx Pneumococcal Vaccination Yes Allergies/Adverse Reactions: Allergies Allergy/AdvReac Type Severity Reaction Status Date / Time No Known Allergies Allergy Verified 08/04/18 17:54 Home Medications: HOME MEDICATIONS Glimepiride [Amaryl] 4 mg PO DAILY@1200 11/28/14 [Last Taken 01/11/18 08:00] Carbidopa/Levodopa Cr 50/200 [Sinemet Cr 50/200] 1 tab PO HS 08/02/17 [Last Taken 01/10/18 21:00] Docusate Sodium [Stool Softener] 400 mg PO HS 08/02/17 [Last Taken Unknown] rOPINIRole HCL [Requip] 0.5 mg PO TID 08/02/17 [Last Taken 01/11/18 18:00] Aspirin [Aspirin Enteric Coated] 81 mg PO DAILY 11/22/17 [Last Taken 01/11/18 08:00] Bimatoprost [Lumigan] 1 drp OP HS 11/22/17 [Last Taken 01/10/18 21:00] Blood-Glucose Meter [Blood Glucose Monitoring] 1 ea MC DAILY 11/22/17 [Last Taken Unknown] Carbidopa/Levodopa [Carbidopa-Levodopa 25-100 Tab] 2 ea PO TID 11/22/17 [Last Taken 01/11/18 18:00] Cholecalciferol (Vitamin D3) [Vitamin D3] 2,000 unit PO DAILY 11/22/17 [Last Taken 01/11/18 08:00] blood sugar diagnostic strips See Dose Instructions .ROUTE .MEDSUPPLY #20 ea 06/28/18 [Last Taken Unknown] blood-glucose meter See Dose Instructions .ROUTE .MEDSUPPLY #1 ea 06/28/18 [Last Taken Unknown] insulin degludec (U-100) 100 unit/mL (3 mL) subcutaneous pen 30 unit SUB-Q DAILY 06/28/18 [Last Taken Unknown] pen needle, diabetic 31 gauge x 3/16" See Dose Instructions .ROUTE .MEDSUPPLY #30 ea 06/28/18 [Last Taken Unknown] sertraline 25 mg tablet 50 mg PO HS tab 07/03/18 [Last Taken Unknown] clopidogrel 75 mg tablet 75 mg PO DAILY #30 tab 07/17/18 [Last Taken Unknown] Apixaban [Eliquis] 5 mg PO BID 08/01/18 [Last Taken Unknown] Atorvastatin Calcium 40 mg PO HS 08/01/18 [Last Taken Unknown] Furosemide [Lasix] 80 mg PO BID 08/01/18 [Last Taken Unknown] Metoprolol Succinate 25 mg PO DAILY 08/01/18 [Last Taken Unknown] Pantoprazole Sodium [Protonix] 40 mg PO DAILY 08/01/18 [Last Taken Unknown] Polyethylene Glycol 3350 [Miralax] 17 gm PO DAILY 08/01/18 [Last Taken Unknown] rOPINIRole HCL [Requip] 1 mg PO HS 08/01/18 [Last Taken Unknown] Clopidogrel Bisulfate [Plavix] 75 mg PO DAILY 08/04/18 [Last Taken Unknown] Exam - Exam Vital Signs: Vital Signs - Last Taken Temp 36.8 C 08/04/18 19:59 Pulse 70 08/04/18 19:59 Resp 21 H 08/04/18 19:59 BP 105/51 08/04/18 19:59 Pulse Ox 98 08/04/18 19:59 Constitutional: Present: Alert, Oriented x3, Cooperative ENT Exam: Present: hearing grossly normal Eye Exam: bilateral eye: normal inspection, PERRL, EOMI Neck: Present: supple Back Exam: Present: no CVA tenderness Respiratory: Present: decreased breath sounds, No rales, No wheezing Cardiovascular/Chest: Present: regular rate, rhythm, no JVD, no murmur Abdomen: Present: Normal bowel sounds, soft, nontender, nondistended Extremity: Present: no pedal edema, no calf tenderness Diagnostic Studies: Abnormal Lab Results 08/04/18 08/04/18 08/04/18 Range/Units 17:45 18:10 18:10 WBC 11.5 H (4.0-10.5) K/mm3 RBC 2.80 L (4.7-6.0) M/mm3 Hgb 8.0 L (13.5-18.0) gm/dL Hct 24.2 L (42.0-52.0) % RDW 18.6 H (11.5-14.0) % Immature Gran # (Auto) 0.05 H (0.000-0.0310) K/mm3 Neutrophils % 80.8 H (42-75.0) % Lymphocytes % 8.0 L (20-51) % Monocytes % 10.1 H (0.0-9) % Neutrophils # 9.3 H (1.3-6.0) K/mm3 Lymphocytes # 0.92 L (1.5-3.5) k/mm3 Monocytes # 1.2 H (0.0-1.0) k/mm3 PT (9.0-11.0) Seconds INR (Anticoag Therapy) (0.90-1.10) INR VBG pH 7.438 H (7.32-7.43) Sodium (132-142) mmol/L Chloride (97-106) mmol/L BUN (6-23) mg/dL Creatinine (0.4-1.4) mg/dL Est GFR (Non-Af Amer) (60-130) mL/min BUN/Creatinine Ratio (9.0-21.6) Random Glucose (70-110) mg/dL Lactic Acid, Venous (0.4-2.0) mmol/L Total Bilirubin (0.0-1.1) mg/dL ALT (19-67) U/L Urine Glucose (UA) >=1000 H (NEGATIVE) mg/dL Urine Blood 250 H (NEGATIVE) /ul Ur Leukocyte Esterase 75 H (NEGATIVE) /ul Urine RBC 25-50 H (0-5) /hpf Urine WBC 10-25 H (0-5) /hpf Urine Bacteria 1+ H (NONE) 08/04/18 08/04/18 08/04/18 Range/Units 18:10 18:10 18:10 WBC (4.0-10.5) K/mm3 RBC (4.7-6.0) M/mm3 Hgb (13.5-18.0) gm/dL Hct (42.0-52.0) % RDW (11.5-14.0) % Immature Gran # (Auto) (0.000-0.0310) K/mm3 Neutrophils % (42-75.0) % Lymphocytes % (20-51) % Monocytes % (0.0-9) % Neutrophils # (1.3-6.0) K/mm3 Lymphocytes # (1.5-3.5) k/mm3 Monocytes # (0.0-1.0) k/mm3 PT 12.2 H (9.0-11.0) Seconds INR (Anticoag Therapy) 1.22 H (0.90-1.10) INR VBG pH (7.32-7.43) Sodium 129 L (132-142) mmol/L Chloride 93 L (97-106) mmol/L BUN 59 H (6-23) mg/dL Creatinine 1.77 H (0.4-1.4) mg/dL Est GFR (Non-Af Amer) 40 L (60-130) mL/min BUN/Creatinine Ratio 33.3 H (9.0-21.6) Random Glucose 412 H (70-110) mg/dL Lactic Acid, Venous 2.3 H* (0.4-2.0) mmol/L Total Bilirubin 2.7 H (0.0-1.1) mg/dL ALT 7 L (19-67) U/L Urine Glucose (UA) (NEGATIVE) mg/dL Urine Blood (NEGATIVE) /ul Ur Leukocyte Esterase (NEGATIVE) /ul Urine RBC (0-5) /hpf Urine WBC (0-5) /hpf Urine Bacteria (NONE) Laboratory Results WBC 11.5 K/mm3 (4.0-10.5) H 08/04/18 18:10 RBC 2.80 M/mm3 (4.7-6.0) L 08/04/18 18:10 Hgb 8.0 gm/dL (13.5-18.0) L 08/04/18 18:10 Hct 24.2 % (42.0-52.0) L 08/04/18 18:10 MCV 86.4 fl (78-100) 08/04/18 18:10 MCH 28.6 pg (27-31) 08/04/18 18:10 MCHC 33.1 g/dl (32-36) 08/04/18 18:10 RDW 18.6 % (11.5-14.0) H 08/04/18 18:10 Plt Count 158 K/mm3 (150-450) 08/04/18 18:10 MPV 9.4 fl (8-11.3) 08/04/18 18:10 Immature Gran % (Auto) 0.40 % (0.001-0.429) 08/04/18 18:10 Immature Gran # (Auto) 0.05 K/mm3 (0.000-0.0310) H 08/04/18 18:10 Neutrophils % 80.8 % (42-75.0) H 08/04/18 18:10 Lymphocytes % 8.0 % (20-51) L 08/04/18 18:10 Monocytes % 10.1 % (0.0-9) H 08/04/18 18:10 Eosinophils % 0.5 % (0.0-3.0) 08/04/18 18:10 Basophils % 0.2 % (0.0-1.0) 08/04/18 18:10 Nucleated RBC % 0.0 k/mm3 (0-1) 08/04/18 18:10 Neutrophils # 9.3 K/mm3 (1.3-6.0) H 08/04/18 18:10 Lymphocytes # 0.92 k/mm3 (1.5-3.5) L 08/04/18 18:10 Monocytes # 1.2 k/mm3 (0.0-1.0) H 08/04/18 18:10 Eosinophils # 0.1 k/mm3 (0.0-0.7) 08/04/18 18:10 Absolute Basophils 0.0 k/mm3 (0.0-0.1) 08/04/18 18:10 PT 12.2 Seconds (9.0-11.0) H 08/04/18 18:10 INR (Anticoag Therapy) 1.22 INR (0.90-1.10) H 08/04/18 18:10 VBG pH 7.438 (7.32-7.43) H 08/04/18 18:10 Sodium 129 mmol/L (132-142) L 08/04/18 18:10 Plasma Sodium 134 mmol/L (130-142) 08/04/18 18:10 Potassium 4.0 mmol/L (3.4-4.6) 08/04/18 18:10 Chloride 93 mmol/L (97-106) L 08/04/18 18:10 Carbon Dioxide 28.5 mmol/L (24-32.6) 08/04/18 18:10 Anion Gap 11.5 mmol/L (6.8-13.8) 08/04/18 18:10 BUN 59 mg/dL (6-23) H 08/04/18 18:10 Creatinine 1.77 mg/dL (0.4-1.4) H 08/04/18 18:10 Est GFR (Non-Af Amer) 40 mL/min (60-130) L 08/04/18 18:10 BUN/Creatinine Ratio 33.3 (9.0-21.6) H 08/04/18 18:10 Random Glucose 412 mg/dL (70-110) H 08/04/18 18:10 Lactic Acid, Venous 2.3 mmol/L (0.4-2.0) H* 08/04/18 18:10 Calcium 8.9 mg/dL (7.9-10.9) 08/04/18 18:10 Calcium Adj for Albumin 9.1 mg/dL (8.4-10.2) 08/04/18 18:10 Total Bilirubin 2.7 mg/dL (0.0-1.1) H 08/04/18 18:10 AST 12 U/L (0-48) 08/04/18 18:10 ALT 7 U/L (19-67) L 08/04/18 18:10 Alkaline Phosphatase 170 U/L (50-170) 08/04/18 18:10 Total Protein 7.0 gm/dL (6.2-8.2) 08/04/18 18:10 Albumin 3.4 gm/dl (3.4-5.0) 08/04/18 18:10 Urine Color Yellow 08/04/18 17:45 Urine Appearance Slightly cloudy (CLEAR) 08/04/18 17:45 Urine pH 6.0 pH (5.0-7.0) 08/04/18 17:45 Ur Specific Hunt 1.010 SP.GR. (1.005-1.030) 08/04/18 17:45 Urine Protein Negative mg/dL (NEGATIVE) 08/04/18 17:45 Urine Glucose (UA) >=1000 mg/dL (NEGATIVE) H 08/04/18 17:45 Urine Ketones Negative mg/dL (NEGATIVE) 08/04/18 17:45 Urine Blood 250 /ul (NEGATIVE) H 08/04/18 17:45 Urine Nitrate Negative (NEGATIVE) 08/04/18 17:45 Urine Bilirubin Negative mg/dl (NEGATIVE) 08/04/18 17:45 Urine Urobilinogen Normal EU/dl (NORMAL) 08/04/18 17:45 Ur Leukocyte Esterase 75 /ul (NEGATIVE) H 08/04/18 17:45 Urine RBC 25-50 /hpf (0-5) H 08/04/18 17:45 Urine WBC 10-25 /hpf (0-5) H 08/04/18 17:45 Ur Epithelial Cells None seen /hpf (0-5) 08/04/18 17:45 Urine Bacteria 1+ (NONE) H 08/04/18 17:45 Urine Culture Comments Culture to follow 08/04/18 17:45 Serum Ketones Negative (NEGATIVE) 08/04/18 18:10 Assessment/Plan - Assessment/Plan (1) UTI (urinary tract infection) Assessment: will continue with IV antibiotics. Await C & S. Problem: Acute Qualifiers: Urinary tract infection type: catheter-associated UTI Indwelling urinary catheter type: indwelling urethral catheter Encounter type: initial encounter Qualified Code(s): T83.511A - Infection and inflammatory reaction due to indwelling urethral catheter, initial encounter; N39.0 - Urinary tract infection, site not specified (2) Hyperglycemia Assessment: BS 508 due to infection. no ketones. Problem: Acute (3) Leucocytosis Assessment: due to UTI Problem: Acute Qualifiers: Leukocytosis type: unspecified Qualified Code(s): D72.829 - Elevated white blood cell count, unspecified (4) Pacemaker Problem: Acute (5) Diabetes Problem: Chronic Qualifiers: Diabetes mellitus type: type 2 (6) BPH (benign prostatic hyperplasia) Problem: Chronic (7) Parkinson disease Problem: Chronic (8) Anemia Assessment: danitza do anemia work up. Problem: Acute Qualifiers: Anemia type: unspecified type Qualified Code(s): D64.9 - Anemia, unspecified
[2018-08-04 21:39] LABS: Iron 31 mcg/dL (35-120); Transferrin Sat. (% Sat.) 11 % (15-55)
[2018-08-04 23:20] LABS: Folate 8.6 ng/mL (8.6-58.9)
[2018-08-05] MEDS: INSULIN LISPRO 100 UNITS/ML VIAL SC SCH ×4 (00:04→16:52)
[2018-08-05] MEDS: NORMAL SALINE 1,000 ML IV PRN ×2 (04:37→12:45)
--- NOTE | 2018-08-05 12:48 | PN ---
Subjective - Date and Time Seen Date: 08/05/18 Time: 13:13 Subjective Narrative: Afebrile. His pain is in his scroum whenever he urinates. UCS- Gram negative bacilli. Objective - Review of Systems Generalized/Overall Review: Reports: Weakness. Denies: Chills, Fever Respiratory: Denies: Cough, Shortness of Breath Cardiac: Denies: Chest Pain, Edema, Palpitations Abdominal: Denies: Nausea, Vomiting Genitourinary Symptoms: Reports: Other - scrotal pain when urinating. Denies: Urgency, Frequency - Vitals Vitals: Last Vital Signs Temp 36.9 C 08/05/18 10:52 Pulse 83 08/05/18 10:52 Resp 16 08/05/18 10:52 BP 99/56 08/05/18 10:52 Pulse Ox 100 08/05/18 10:52 - Abnormal Lab Findings Abnormal Lab Findings: Abnormal Lab Results 08/04/18 08/04/18 08/04/18 Range/Units 17:45 18:00 18:10 WBC 11.5 H (4.0-10.5) K/mm3 RBC 2.80 L (4.7-6.0) M/mm3 Hgb 8.0 L (13.5-18.0) gm/dL Hct 24.2 L (42.0-52.0) % RDW 18.6 H (11.5-14.0) % Immature Gran # (Auto) 0.05 H (0.000-0.0310) K/mm3 Neutrophils % 80.8 H (42-75.0) % Lymphocytes % 8.0 L (20-51) % Monocytes % 10.1 H (0.0-9) % Neutrophils # 9.3 H (1.3-6.0) K/mm3 Lymphocytes # 0.92 L (1.5-3.5) k/mm3 Monocytes # 1.2 H (0.0-1.0) k/mm3 PT (9.0-11.0) Seconds INR (Anticoag Therapy) (0.90-1.10) INR VBG pH (7.32-7.43) Sodium (132-142) mmol/L Chloride (97-106) mmol/L BUN (6-23) mg/dL Creatinine (0.4-1.4) mg/dL Est GFR (Non-Af Amer) (60-130) mL/min BUN/Creatinine Ratio (9.0-21.6) Random Glucose (70-110) mg/dL Lactic Acid, Venous (0.4-2.0) mmol/L Iron 31 L (35-120) mcg/dL Transferrin % Sat 11 L (15-55) % Total Bilirubin (0.0-1.1) mg/dL ALT (19-67) U/L Urine Glucose (UA) >=1000 H (NEGATIVE) mg/dL Urine Blood 250 H (NEGATIVE) /ul Ur Leukocyte Esterase 75 H (NEGATIVE) /ul Urine RBC 25-50 H (0-5) /hpf Urine WBC 10-25 H (0-5) /hpf Urine Bacteria 1+ H (NONE) 08/04/18 08/04/18 08/04/18 Range/Units 18:10 18:10 18:10 WBC (4.0-10.5) K/mm3 RBC (4.7-6.0) M/mm3 Hgb (13.5-18.0) gm/dL Hct (42.0-52.0) % RDW (11.5-14.0) % Immature Gran # (Auto) (0.000-0.0310) K/mm3 Neutrophils % (42-75.0) % Lymphocytes % (20-51) % Monocytes % (0.0-9) % Neutrophils # (1.3-6.0) K/mm3 Lymphocytes # (1.5-3.5) k/mm3 Monocytes # (0.0-1.0) k/mm3 PT (9.0-11.0) Seconds INR (Anticoag Therapy) (0.90-1.10) INR VBG pH 7.438 H (7.32-7.43) Sodium 129 L (132-142) mmol/L Chloride 93 L (97-106) mmol/L BUN 59 H (6-23) mg/dL Creatinine 1.77 H (0.4-1.4) mg/dL Est GFR (Non-Af Amer) 40 L (60-130) mL/min BUN/Creatinine Ratio 33.3 H (9.0-21.6) Random Glucose 412 H (70-110) mg/dL Lactic Acid, Venous 2.3 H* (0.4-2.0) mmol/L Iron (35-120) mcg/dL Transferrin % Sat (15-55) % Total Bilirubin 2.7 H (0.0-1.1) mg/dL ALT 7 L (19-67) U/L Urine Glucose (UA) (NEGATIVE) mg/dL Urine Blood (NEGATIVE) /ul Ur Leukocyte Esterase (NEGATIVE) /ul Urine RBC (0-5) /hpf Urine WBC (0-5) /hpf Urine Bacteria (NONE) 08/04/18 Range/Units 18:10 WBC (4.0-10.5) K/mm3 RBC (4.7-6.0) M/mm3 Hgb (13.5-18.0) gm/dL Hct (42.0-52.0) % RDW (11.5-14.0) % Immature Gran # (Auto) (0.000-0.0310) K/mm3 Neutrophils % (42-75.0) % Lymphocytes % (20-51) % Monocytes % (0.0-9) % Neutrophils # (1.3-6.0) K/mm3 Lymphocytes # (1.5-3.5) k/mm3 Monocytes # (0.0-1.0) k/mm3 PT 12.2 H (9.0-11.0) Seconds INR (Anticoag Therapy) 1.22 H (0.90-1.10) INR VBG pH (7.32-7.43) Sodium (132-142) mmol/L Chloride (97-106) mmol/L BUN (6-23) mg/dL Creatinine (0.4-1.4) mg/dL Est GFR (Non-Af Amer) (60-130) mL/min BUN/Creatinine Ratio (9.0-21.6) Random Glucose (70-110) mg/dL Lactic Acid, Venous (0.4-2.0) mmol/L Iron (35-120) mcg/dL Transferrin % Sat (15-55) % Total Bilirubin (0.0-1.1) mg/dL ALT (19-67) U/L Urine Glucose (UA) (NEGATIVE) mg/dL Urine Blood (NEGATIVE) /ul Ur Leukocyte Esterase (NEGATIVE) /ul Urine RBC (0-5) /hpf Urine WBC (0-5) /hpf Urine Bacteria (NONE) - Exam Constitutional: Present: Alert, Oriented x3, Cooperative ENT Exam: Present: hearing grossly normal Neck: Present: supple Respiratory: Present: decreased breath sounds, No rales, No wheezing Cardiovascular/Chest: Present: regular rate, rhythm, no JVD, no murmur Abdomen: Present: Normal bowel sounds, soft, nontender, nondistended /Rectal: Present: Other - tender scrotum left more than right Extremity: Present: no calf tenderness, pedal edema Assessment/Plan - Problems/Diagnosis (1) Scrotal pain Problem: Acute Narrative: likely Orchitis r/o epidimytis.. will get US . will continue with IV antibitoics. (2) UTI (urinary tract infection) Problem: Acute Qualifiers: Urinary tract infection type: catheter-associated UTI Indwelling urinary catheter type: indwelling urethral catheter Encounter type: initial encounter Qualified Code(s): T83.511A - Infection and inflammatory reaction due to indwelling urethral catheter, initial encounter; N39.0 - Urinary tract infection, site not specified Narrative: gram Negative bacilli UTI. Continue with IV antibitoics. (3) Hyperglycemia Problem: Acute Narrative: on accucheck. Home meds restarted (4) Leucocytosis Problem: Acute Qualifiers: Leukocytosis type: unspecified Qualified Code(s): D72.829 - Elevated white blood cell count, unspecified Narrative: due to UTI (5) Pacemaker Problem: Acute (6) Diabetes Problem: Chronic Qualifiers: Diabetes mellitus type: type 2 (7) BPH (benign prostatic hyperplasia) Problem: Chronic (8) Parkinson disease Problem: Chronic (9) Anemia Problem: Acute Qualifiers: Anemia type: unspecified type Qualified Code(s): D64.9 - Anemia, unspe cified
[2018-08-05] MEDS ORDERED: ACETAMINOPHEN 500 MG TABLET PO PRN (13:09)
[2018-08-05 13:29] LABS: Mean Corpuscular Hemoglobin 28.6 pg (27-31); Mean Corpuscular Hgb Conc 32.5 g/dl (32-36); Mean Platelet Volume 9.2 fl (8-11.3); Neutrophil # 8.6 K/mm3 (1.3-6.0); Neutrophil % 75.5 % (42-75.0); Platelet Count 144 K/mm3 (150-450); Red Blood Count 2.66 M/mm3 (4.7-6.0); Red Cell Distribution Width 18.7 % (11.5-14.0); White Blood Count 11.3 K/mm3 (4.0-10.5)
[2018-08-05 13:38] LABS: Anion Gap 10.3 mmol/L (6.8-13.8); BUN/Creatinine Ratio 34.2 (9.0-21.6); Calcium * 8.6 mg/dL (7.9-10.9); Carbon Dioxide 27.3 mmol/L (24-32.6); Estimated Creat Clear 38.6; Potassium 3.6 mmol/L (3.4-4.6)
[2018-08-05 13:47] LABS: Hematocrit 23.4 % (42.0-52.0); Hemoglobin 7.6 gm/dL (13.5-18.0)
[2018-08-05] MEDS: CARBIDOPA/LEVODOPA 25/100 1 TAB TABLET PO SCH ×2 (14:22→16:23)
[2018-08-05] MEDS: rOPINIRole HCL 0.5 MG TABLET PO SCH ×2 (14:22→16:23)
[2018-08-05] MEDS: PANTOPRAZOLE SODIUM 40 MG in NORMAL SALINE 100 ML IV SCH (14:23)
--- NOTE | 2018-08-05 14:28 | PN ---
Progess Note - Interim Date: 08/05/18 Time: 14:22 Narrative: 08/05/18 14:22 Hb came back as 7.6. he was 12.2 in June and then 9 on 08/01, then 8 08/04 and 7.6 today.the daughter says his father has been having black stools. he is on on ASA, Clopidrogel and Apixaban by cardiology. will hold these. give him 2 units of PRBC because of his recent CAD s/p stenting. and refer him to Dr. Yuen for possible EGD. ADDENDUM: patient complained of abdominal pain and not scrotal pain. CTS of abdomen and pelvis done to r/o Diverticuiltis. Patient transferred to acute status due to his multiple mediclal problems.
[2018-08-05] MEDS ORDERED: FUROSEMIDE 10 MG/ML VIAL IV SCH (14:29)
--- NOTE | 2018-08-05 16:35 | CONS ---
HPI - General Date of Service: 08/05/18 Source: patient, family, RN/MD, RN notes reviewed, old records Exam Limitations: no limitations - History of Present Illness Initial Comments: The patient was admitted for fever and chills. He has an indwelling Charles catheter and bacteriuria. His hemoglobin has decreased from 9 on 08/01/2018 to 7.6 today. He has normal indices however iron is 31 transferrin saturation 11 with TIBC of 277. His last normal hemoglobin was in September 2017. His hemoglobin was 12.2 in December. He had an EGD and colonoscopy in 2010 for anemia. His colonoscopy was normal. He had antritis on his EGD. His recent history is remarkable for coronary artery stenting and placement of a pacemaker/defibrillator. He did develop a hematoma in the left arm. During the interview the patient complains of burning from the urinary catheter, HOWEVER he states he also has pain in the left lower quadrant which he has had for about 2 weeks. He states it feels like it would be better if he moved his bowels but the pain does not change when he does. He states he told them about it in [place] because he had it when he was there. He used to move his bowels daily. Currently he is moving them less often, po ssibly because of pain pills which he states constipate him. Allergies/Adverse Reactions: Allergies No Known Allergies Allergy (Verified 08/04/18 17:54) Home Medications: Home Medications Medication Instructions Recorded Last Taken Glimepiride [Amaryl] 4 mg PO DAILY@1200 11/28/14 08/04/18 12:00 Carbidopa/Levodopa Cr 50/200 1 tab PO 08/02/17 08/03/18 20:00 [Sinemet Cr 50/200] Docusate Sodium [Stool Softener] 400 mg PO 08/02/17 08/03/18 20:00 rOPINIRole HCL [Requip] 0.5 mg PO TID 08/02/17 01/11/18 18:00 Aspirin [Aspirin Enteric Coated] 81 mg PO DAILY 11/22/17 08/04/18 08:00 81mg Bimatoprost [Lumigan] 1 drp OP HS 11/22/17 08/03/18 21:00 Blood-Glucose Meter [Blood Glucose 1 ea MC DAILY 11/22/17 Unknown Monitoring] Carbidopa/Levodopa 2 ea PO TID 11/22/17 08/04/18 12:00 [Carbidopa-Levodopa 25-100 Tab] Cholecalciferol (Vitamin D3) 2,000 unit PO DAILY 11/22/17 01/11/18 08:00 [Vitamin D3] insulin degludec (U-100) 100 30 unit SUB-Q DAILY 06/28/18 Unknown unit/mL (3 mL) subcutaneous pen sertraline 25 mg tablet 50 mg PO HS tab 07/03/18 Unknown clopidogrel 75 mg tablet 75 mg PO DAILY #30 tab 07/17/18 08/04/18 08:00 Apixaban [Eliquis] 5 mg PO BID 08/01/18 08/04/18 08:00 Atorvastatin Calcium 40 mg PO HS 08/01/18 08/03/18 20:00 Furosemide [Lasix] 80 mg PO BID 08/01/18 08/04/18 08:00 Metoprolol Succinate 25 mg PO DAILY 08/01/18 Unknown Pantoprazole Sodium [Protonix] 40 mg PO DAILY 08/01/18 Unknown Polyethylene Glycol 3350 [Miralax] 17 gm PO DAILY 08/01/18 Unknown rOPINIRole HCL [Requip] 1 mg PO HS 08/01/18 Unknown Clopidogrel Bisulfate [Plavix] 75 mg PO DAILY 08/04/18 Unknown Lisinopril [Zestril] 2.5 mg PO DAILY 08/05/18 Unknown Potassium Chloride [K-Tab ER] 10 meq PO DAILY 08/05/18 Unknown Tamsulosin HCl 0.4 mg PO HS 08/05/18 Unknown Procedures ANESTH INJEC PERIPH NERV (06/24/10) ANESTH INJECT-SPIN CANAL (10/13/09) ARTHROCENTESIS (03/30/10) Biopsy of lymphatic structure (07/01/03) CLOSURE SKIN & SUBCUTANEOUS NEC (04/24/10) Colonoscopy (03/01/11) Endoscopic polypectomy of large intestine (07/20/00) Esophagogastroduodenoscopy [EGD] with closed biopsy (04/28/11) Excision of semilunar cartilage of knee (05/11/06) Excision of tendon of hand for graft (06/05/02) INJECT STEROID (06/24/10) Injection of anesthetic into spinal canal for analgesia (12/23/11) Injection of other agent into spinal canal (12/23/11) Injection of steroid (12/23/11) Injection or infusion of thrombolytic agent (03/21/09) Insertion of intraocular lens prosthesis at time of cataract extraction, one- stage (07/30/12) KNEE ARTHROSCOPY (09/05/06) Laparoscopic cholecystectomy (03/13/13) Other incision with drainage of skin and subcutaneous tissue (09/19/03) PERIPH NERVE INJECT NEC (06/24/10) Phacoemulsification and aspiration of cataract (07/30/12) SONNY OF KNEE REPLACEMENT, TOTAL (ALL COMPONENTS) (03/30/10) Release of carpal tunnel (12/28/00) SPINAL CANAL INJECT NEC (10/13/09) Tendon carla reconstruction of hand (06/05/02) Total knee replacement (09/05/06) Transposition of cranial and peripheral nerves (12/28/00) VENOUS CATHETERIZATION NEC (04/02/10) Medications - Medications Current Medications: Current Medications Acetaminophen (Tylenol) 500 mg PO Q4H PRN PRN Reason: Mild pain (pain scale 1-3) Stop: 09/04/18 13:10 Last Admin: 08/05/18 16:24 Dose: 500 mg Carbidopa/Levodopa (Sinemet 25/100) 2 tab PO TID [facility] Stop: 09/04/18 13:01 Last Admin: 08/05/18 16:23 Dose: 2 tab Ceftriaxone Sodium 1,000 mg/ (Dextrose/Water) 100 mls @ 200 mls/hr IV Q24H [facility]; Protocol Stop: 09/03/18 19:46 Last Infusion: 08/04/18 20:35 Dose: Infused Sodium Chloride (Sodium Chloride 0.9%) 1,000 mls @ 126 mls/hr IV .Q7H57M PRN PRN Reason: HYDRATION Last Admin: 08/05/18 12:45 Dose: 126 mls/hr Pantoprazole Sodium 40 mg/ (Sodium Chloride) 100 mls @ 400 mls/hr IV Q24H [facility] Stop: 09/04/18 14:16 Last Infusion: 08/05/18 16:24 Dose: Infused Insulin Human Lispro (Humalog) 0 units SC ACHSINS [facility]; Protocol Stop: 09/03/18 21:01 Last Admin: 10/14/18 11:38 Dose: 8 units Ropinirole HCl (Requip) 0.5 mg PO TID [facility] Stop: 09/04/18 13:01 Last Admin: 08/05/18 16:23 Dose: 0.5 mg Review of Systems - Review of Systems Generalized/Overall Review: Absent: Chills EENTM: Present: No Symptoms Reported Respiratory: Present: No Symptoms Reported Cardiac: Absent: Chest Pain Abdominal: Present: Other - He has pain in the left lower quadrant which is worse when he coughs. He has burning pain from the urinary catheter. He specifically denies heartburn currently. He has had this in the past but is off omeprazole Musculoskeletal: Present: Other - Pain in his feet Neurological: Present: Tremors Skin: Present: Bruising Physical Examination - Exam Vital Signs: Vital Signs - Last Taken Temp 36.7 C 08/05/18 14:00 Pulse 73 08/05/18 14:01 Resp 20 08/05/18 14:00 BP 141/46 08/05/18 14:00 Pulse Ox 98 08/05/18 14:00 O2 Oxygen Delivery Method Room Air Constitutional: Present: Alert, Oriented x3, Mild distress ENT Exam: Present: normal ENT inspection Eye Exam: bilateral eye: normal inspection Neck: Present: supple, normal inspection Respiratory: Present: no respiratory distress Cardiovascular/Chest: Present: other - Paced rhythm. Healing pacemaker pocket left upper chest Abdomen: Present: other - His abdomen is soft. He is not distended. He complains of pain to deep directpalpation in the left lower quadrant. He has severe rebound tenderness in this location. There is no suprapubic or right lower quadrant tenderness. There is no epigastric tenderness Extremity: Present: normal range of motion Skin Exam: Present: other - Marked bruising on the left upper arm and multiple other bruises on the arms Neurologic: Present: group sales representative II-XII nml as tested, other - Tremor Appearance: Present: appropriate appearance Eye contact: Present: cooperative, good eye contact, normal speech Thoughts: Present: normal thought pattern - Results and Findings: Lab/Microbiology results last 24 hrs: Abnormal/Pending Laboratory Last 24 HRS 08/05/18 08/05/18 08/05/18 14:45 13:23 13:23 WBC 11.3 H RBC 2.66 L Hgb 7.6 L* Hct 23.4 L* RDW 18.7 H Plt Count 144 L Immature Gran % (Auto) 0.70 H Immature Gran # (Auto) 0.08 H Neutrophils % 75.5 H Lymphocytes % 13.2 L Monocytes % Neutrophils # 8.6 H Lymphocytes # 1.49 L Monocytes # PT INR (Anticoag Therapy) VBG pH Sodium 130 L Chloride 96 L BUN 53 H Creatinine 1.55 H Est GFR (Non-Af Amer) 46 L BUN/Creatinine Ratio 34.2 H Random Glucose 249 H D Lactic Acid, Venous Iron Transferrin % Sat Total Bilirubin ALT Urine Glucose (UA) Urine Blood Ur Leukocyte Esterase Urine RBC Urine WBC Urine Bacteria Crossmatch See Detail 08/04/18 08/04/18 08/04/18 18:10 18:10 18:10 WBC RBC Hgb Hct RDW Plt Count Immature Gran % (Auto) Immature Gran # (Auto) Neutrophils % Lymphocytes % Monocytes % Neutrophils # Lymphocytes # Monocytes # PT 12.2 H INR (Anticoag Therapy) 1.22 H VBG pH Sodium 129 L Chloride 93 L BUN 59 H Creatinine 1.77 H Est GFR (Non-Af Amer) 40 L BUN/Creatinine Ratio 33.3 H Random Glucose 412 H Lactic Acid, Venous 2.3 H* Iron Transferrin % Sat Total Bilirubin 2.7 H ALT 7 L Urine Glucose (UA) Urine Blood Ur Leukocyte Esterase Urine RBC Urine WBC Urine Bacteria Crossmatch 08/04/18 08/04/18 08/04/18 18:10 18:10 18:00 WBC 11.5 H RBC 2.80 L Hgb 8.0 L Hct 24.2 L RDW 18.6 H Plt Count Immature Gran % (Auto) Immature Gran # (Auto) 0.05 H Neutrophils % 80.8 H Lymphocytes % 8.0 L Monocytes % 10.1 H Neutrophils # 9.3 H Lymphocytes # 0.92 L Monocytes # 1.2 H PT INR (Anticoag Therapy) VBG pH 7.438 H Sodium Chloride BUN Creatinine Est GFR (Non-Af Amer) BUN/Creatinine Ratio Random Glucose Lactic Acid, Venous Iron 31 L Transferrin % Sat 11 L Total Bilirubin ALT Urine Glucose (UA) Urine Blood Ur Leukocyte Esterase Urine RBC Urine WBC Urine Bacteria Crossmatch 08/04/18 17:45 WBC RBC Hgb Hct RDW Plt Count Immature Gran % (Auto) Immature Gran # (Auto) Neutrophils % Lymphocytes % Monocytes % Neutrophils # Lymphocytes # Monocytes # PT INR (Anticoag Therapy) VBG pH Sodium Chloride BUN Creatinine Est GFR (Non-Af Amer) BUN/Creatinine Ratio Random Glucose Lactic Acid, Venous Iron Transferrin % Sat Total Bilirubin ALT Urine Glucose (UA) >=1000 H Urine Blood 250 H Ur Leukocyte Esterase 75 H Urine RBC 25-50 H Urine WBC 10-25 H Urine Bacteria 1+ H Crossmatch Culture 08/04/18 18:30 Urine Culture - Preliminary Urine,Catheterized Gram Negative Bacilli - Assessments/Findings (1) Anemia Diagnosis(s): His hemoglobin has decreased from 12.2 in December and then from 9 on 08/01/2018 to 7.6 currently. He does not have much in the way of upper GI symptoms. He does have a past history of antritis. He is on anticoagulants, and it would be useful to perform an EGD to differentiate between gastritis and ulcer Pamphlets on EGD and GERD were reviewed with him and given to him. The risks of the procedure were explained. After interactive discussion his questions were answered to his apparent satisfaction and he has given informed consent for EGD with biopsies. We will keep him n.p.o. after midnight and tentatively try to do this before the OR schedule begins tomorrow morning. Problem: Acute Qualifiers: Anemia type: unspecified type Qualified Code(s): D64.9 - Anemia, unspecified (2) Abdominal pain Diagnosis(s): I am concerned with the physical findings of left lower quadrant pain with rebound. He may have diverticulitis. I will discussed this with Dr. Shea as a CT scan may be indicated. Problem: Acute
[2018-08-05] MEDS ORDERED: metroNIDAZOLE/SODIUM CHLORIDE 500 MG/100 ML BAG IV SCH (18:30)
[2018-08-05] MEDS: DOCUSATE SODIUM 100 MG CAPSULE PO SCH (20:21)
[2018-08-05] MEDS: TAMSULOSIN HCL 0.4 MG CAP.SR.24H PO SCH (20:22)
[2018-08-05] MEDS: ROSUVASTATIN CALCIUM 20 MG TABLET PO SCH (20:22)
[2018-08-05] MEDS: CARBIDOPA/LEVODOPA CR 50/200 1 TAB TABLET.SA PO SCH (20:23)
[2018-08-05] MEDS: SERTRALINE HCL 50 MG TABLET PO SCH (20:23)
[2018-08-05] MEDS ORDERED: ONDANSETRON HCL/PF 2 MG/ML VIAL IV PRN (20:53)
[2018-08-05] MEDS ORDERED: APIXABAN 5 MG TABLET PO SCH (21:00)
[2018-08-05 23:52] LABS: Hematocrit 26.2 % (42.0-52.0); Hemoglobin 8.6 gm/dL (13.5-18.0)
[2018-08-06] MEDS: INSULIN LISPRO 100 UNITS/ML VIAL SC SCH ×5 (00:35→21:02)
[2018-08-06] MEDS: FUROSEMIDE 80 MG TABLET PO SCH ×3 (00:36→20:58)
[2018-08-06] MEDS: rOPINIRole HCL 1 MG TABLET PO SCH ×2 (00:36→20:59)
[2018-08-06] MEDS: BIMATOPROST 25 DROP BTL OP SCH ×2 (00:37→21:04)
[2018-08-06] MEDS: NORMAL SALINE 1,000 ML IV PRN ×2 (05:28→12:10)
[2018-08-06 05:54] LABS: Hematocrit 26.8 % (42.0-52.0); Hemoglobin 8.9 gm/dL (13.5-18.0); Mean Corpuscular Hemoglobin 28.9 pg (27-31); Mean Corpuscular Hgb Conc 33.2 g/dl (32-36); Mean Platelet Volume 10.3 fl (8-11.3); Neutrophil # 4.6 K/mm3 (1.3-6.0); Neutrophil % 64.8 % (42-75.0); Platelet Count 141 K/mm3 (150-450); Red Blood Count 3.08 M/mm3 (4.7-6.0); Red Cell Distribution Width 17.7 % (11.5-14.0)
[2018-08-06 05:59] LABS: Anion Gap 10.2 mmol/L (6.8-13.8); BUN/Creatinine Ratio 30.5 (9.0-21.6); Calcium * 8.5 mg/dL (7.9-10.9); Carbon Dioxide 24.4 mmol/L (24-32.6); Estimated Creat Clear 45.7; Potassium 3.6 mmol/L (3.4-4.6)
[2018-08-06] MEDS ORDERED: PANTOPRAZOLE SODIUM 40 MG TABLET.EC PO SCH (07:00)
--- NOTE | 2018-08-06 07:38 | ANES ---
Anesthesia Pre Procedure Eval Vitals/Labs: Last Vital Signs Temp 36.9 C 08/06/18 06:00 Pulse 78 08/06/18 06:00 Resp 20 08/06/18 06:00 BP 112/50 08/06/18 06:00 Pulse Ox 100 08/06/18 06:00 HOME MEDICATIONS Glimepiride [Amaryl] 4 mg PO DAILY@1200 11/28/14 [Last Taken 08/04/18 12:00] Carbidopa/Levodopa Cr 50/200 [Sinemet Cr 50/200] 1 tab PO HS 08/02/17 [Last Taken 08/03/18 20:00] Docusate Sodium [Stool Softener] 400 mg PO HS 08/02/17 [Last Taken 08/03/18 20:00] rOPINIRole HCL [Requip] 0.5 mg PO TID 08/02/17 [Last Taken 01/11/18 18:00] Aspirin [Aspirin Enteric Coated] 81 mg PO DAILY 11/22/17 [Last Taken 08/04/18 08:00 81mg] Bimatoprost [Lumigan] 1 drp OP HS 11/22/17 [Last Taken 08/03/18 21:00] Blood-Glucose Meter [Blood Glucose Monitoring] 1 ea MC DAILY 11/22/17 [Last Taken Unknown] Carbidopa/Levodopa [Carbidopa-Levodopa 25-100 Tab] 2 ea PO TID 11/22/17 [Last Taken 08/04/18 12:00] Cholecalciferol (Vitamin D3) [Vitamin D3] 2,000 unit PO DAILY 11/22/17 [Last Taken 01/11/18 08:00] insulin degludec (U-100) 100 unit/mL (3 mL) subcutaneous pen 30 unit SUB-Q DAILY 06/28/18 [Last Taken Unknown] sertraline 25 mg tablet 50 mg PO HS tab 07/03/18 [Last Taken Unknown] clopidogrel 75 mg tablet 75 mg PO DAILY #30 tab 07/17/18 [Last Taken 08/04/18 08:00] Apixaban [Eliquis] 5 mg PO BID 08/01/18 [Last Taken 08/04/18 08:00] Atorvastatin Calcium 40 mg PO HS 08/01/18 [Last Taken 08/03/18 20:00] Furosemide [Lasix] 80 mg PO BID 08/01/18 [Last Taken 08/04/18 08:00] Metoprolol Succinate 25 mg PO DAILY 08/01/18 [Last Taken Unknown] Pantoprazole Sodium [Protonix] 40 mg PO DAILY 08/01/18 [Last Taken Unknown] Polyethylene Glycol 3350 [Miralax] 17 gm PO DAILY 08/01/18 [Last Taken Unknown] rOPINIRole HCL [Requip] 1 mg PO HS 08/01/18 [Last Taken Unknown] Clopidogrel Bisulfate [Plavix] 75 mg PO DAILY 08/04/18 [Last Taken Unknown] Lisinopril [Zestril] 2.5 mg PO DAILY 08/05/18 [Last Taken Unknown] Potassium Chloride [K-Tab ER] 10 meq PO DAILY 08/05/18 [Last Taken Unknown] Tamsulosin HCl 0.4 mg PO HS 08/05/18 [Last Taken Unknown] Allergies/Adverse Reactions: Allergies Allergy/AdvReac Type Severity Reaction Status Date / Time No Known Allergies Allergy Verified 08/04/18 17:54 - Planned Procedure Planned Procedure: febrile uti, uncontrolled dm Medication List Reviewed:: Yes Allergies Verified: Yes Medical History (Last Reviewed 08/06/18 @ 07:37 by Pancho Priest CRNA) Pneumonia (Acute) Onset Date: ~2007 Parkinson disease (Chronic) Onset Date: Unknown Osteoarthritis (Chronic) Onset Date: ~02/24/95 Hyperlipidemia (Chronic) Onset Date: Unknown Glaucoma (Chronic) Onset Date: Unknown GERD (gastroesophageal reflux disease) (Chronic) Onset Date: Unknown H/O echocardiogram (Acute) Onset Date: ~12/20/17 Diabetes (Chronic) Onset Date: ~08/19/14 Depression (Chronic) Onset Date: ~04/04/13 Complete tear of left rotator cuff (Resolved) Onset Date: Unknown BPH (benign prostatic hyperplasia) (Chronic) Onset Date: Unknown Cardiac pacemaker Onset Date: ~07/26/18 Pacemaker TIA (transient ischemic attack) Onset Date: ~06/10/98 Surgical History (Last Reviewed 08/06/18 @ 07:37 by Pancho Priest CRNA) Pacemaker (Acute) Onset Date: ~11/2017 Kidney stones (Resolved) Onset Date: ~08/2007 Cataract Onset Date: ~07/30/12 H/O meniscectomy of right knee Onset Date: ~04/2006 History of arthroscopy of shoulder Onset Date: ~11/23/17 History of carpal tunnel release Onset Date: ~12/28/00 History of esophagogastroduodenoscopy Onset Date: ~04/28/11 History of revision of total replacement of right knee joint Onset Date: ~03/30/10 Hx laparoscopic cholecystectomy Onset Date: ~03/13/13 Hx of arthroscopic knee surgery Onset Date: ~04/2006 Hx of colonoscopy Onset Date: ~03/01/11 Previous back surgery Onset Date: ~2009 Family History (Last Reviewed 08/04/18 @ 21:24 by Daphne Bartholomew RN) Brother Diabetes COPD (chronic obstructive pulmonary disease) Emphysema lung Father COPD (chronic obstructive pulmonary disease) Mother Cancer Sister Diabetes CVA (cerebral vascular accident) - Family Anesthesia History Family History:: no untoward family reactions to anesthesia - Airway/Neck/Teeth Denture Type: Full- Upper & Lower Neck Exam: normal inspection Mallampatti Score: 2 Thyromental (T-M) distance: > 6 cm Mandibulo Hyoid distance: > 3 cm - Respiratory Respiratory: lungs clear Smoking Status: Former smoker Sleep Apnea currently treated: No Sleep Apnea by current assessment: No - Cardiovascular Patient History - Cardiac/Respiratory: Arrhythmias, Coronary Heart Disease Tolerates Activity: Fair Heart Sounds: S1 & S2, Irregular - Anesthesia Assessment and Plan ASA Class: PS, III Anesthesia Type Plan: MAC Planned difficult intubation/equipment available: No
--- NOTE | 2018-08-06 08:14 | PN ---
Subjective - Date and Time Seen Date: 08/06/18 Time: 12:00 Subjective Narrative: Patient seen a few hours after his EGD. He reports feel better overall, and things are going the way he hoped. He no longer has abdominal pain since his EGD. He reports his hematuria has been present since he was first catheterized at [facility] a few weeks ago. He would like to try urinating without the choudhury. He is tolerating clear liquids, and would like to have a regular diet. Objective - Review of Systems Generalized/Overall Review: Reports: Weight loss. Denies: Fever, Malaise Respiratory: Denies: Shortness of Breath, Wheezing Cardiac: Denies: Chest Pain, Edema Abdominal: Denies: Vomiting, Bright blood from rectum Genitourinary Symptoms: Reports: Burning - Vitals Vitals: Last Vital Signs Temp 36.9 C 08/06/18 06:00 Pulse 78 08/06/18 06:00 Resp 20 08/06/18 06:00 BP 112/50 08/06/18 06:00 Pulse Ox 100 08/06/18 06:00 - Abnormal Lab Findings Abnormal Lab Findings: Abnormal Lab Results 08/05/18 08/05/18 08/05/18 Range/Units 13:23 13:23 13:50 WBC 11.3 H (4.0-10.5) K/mm3 RBC 2.66 L (4.7-6.0) M/mm3 Hgb 7.6 L* (13.5-18.0) gm/dL Hct 23.4 L* (42.0-52.0) % RDW 18.7 H (11.5-14.0) % Plt Count 144 L (150-450) K/mm3 Immature Gran % (Auto) 0.70 H (0.001-0.429) % Immature Gran # (Auto) 0.08 H (0.000-0.0310) K/mm3 Neutrophils % 75.5 H (42-75.0) % Lymphocytes % 13.2 L (20-51) % Monocytes % (0.0-9) % Eosinophils % (0.0-3.0) % Neutrophils # 8.6 H (1.3-6.0) K/mm3 Lymphocytes # 1.49 L (1.5-3.5) k/mm3 Sodium 130 L (132-142) mmol/L Chloride 96 L (97-106) mmol/L BUN 53 H (6-23) mg/dL Creatinine 1.55 H (0.4-1.4) mg/dL Est GFR (Non-Af Amer) 46 L (60-130) mL/min BUN/Creatinine Ratio 34.2 H (9.0-21.6) Random Glucose 249 H D (70-110) mg/dL Stool Occult Blood Positive H Crossmatch 08/05/18 08/05/18 08/06/18 Range/Units 14:45 23:50 05:10 WBC (4.0-10.5) K/mm3 RBC 3.08 L (4.7-6.0) M/mm3 Hgb 8.6 L 8.9 L (13.5-18.0) gm/dL Hct 26.2 L 26.8 L (42.0-52.0) % RDW 17.7 H (11.5-14.0) % Plt Count 141 L (150-450) K/mm3 Immature Gran % (Auto) (0.001-0.429) % Immature Gran # (Auto) (0.000-0.0310) K/mm3 Neutrophils % (42-75.0) % Lymphocytes % 17.4 L (20-51) % Monocytes % 11.9 H (0.0-9) % Eosinophils % 5.1 H (0.0-3.0) % Neutrophils # (1.3-6.0) K/mm3 Lymphocytes # 1.22 L (1.5-3.5) k/mm3 Sodium (132-142) mmol/L Chloride (97-106) mmol/L BUN (6-23) mg/dL Creatinine (0.4-1.4) mg/dL Est GFR (Non-Af Amer) (60-130) mL/min BUN/Creatinine Ratio (9.0-21.6) Random Glucose (70-110) mg/dL Stool Occult Blood Crossmatch See Detail 08/06/18 Range/Units 05:10 WBC (4.0-10.5) K/mm3 RBC (4.7-6.0) M/mm3 Hgb (13.5-18.0) gm/dL Hct (42.0-52.0) % RDW (11.5-14.0) % Plt Count (150-450) K/mm3 Immature Gran % (Auto) (0.001-0.429) % Immature Gran # (Auto) (0.000-0.0310) K/mm3 Neutrophils % (42-75.0) % Lymphocytes % (20-51) % Monocytes % (0.0-9) % Eosinophils % (0.0-3.0) % Neutrophils # (1.3-6.0) K/mm3 Lymphocytes # (1.5-3.5) k/mm3 Sodium 128 L (132-142) mmol/L Chloride (97-106) mmol/L BUN 40 H (6-23) mg/dL Creatinine (0.4-1.4) mg/dL Est GFR (Non-Af Amer) 56 L D (60-130) mL/min BUN/Creatinine Ratio 30.5 H (9.0-21.6) Random Glucose 260 H (70-110) mg/dL Stool Occult Blood Crossmatch - Exam Constitutional: Present: Alert, Cooperative, No distress Respiratory: Present: normal breath sounds, no respiratory distress, No wheezing. Absent: rales, rhonchi Cardiovascular/Chest: Present: no murmur, other - Incision healing. Extensive bruising of his left upper chest Abdomen: Present: soft. Absent: nontender Extremity: Present: other - SCDs in place Appearance: Present: appropriate appearance, appropriate insight Eye contact: Present: cooperative, good eye contact Assessment/Plan - Problems/Diagnosis (1) Abdominal pain Problem: Acute Narrative: Improved after his EGD. He had some blood in his stomach, and his eliquis and plavix were held. 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 Will continue flagyl for possible diverticulitis since he is improving. (2) UTI (urinary tract infection) Problem: Acute Qualifiers: Urinary tract infection type: catheter-associated UTI Indwelling urinary catheter type: indwelling urethral catheter Encounter type: initial encounter Qualified Code(s): T83.511A - Infection and inflammatory reaction due to indwelling urethral catheter, initial encounter; N39.0 - Urinary tract infection, site not specified Narrative: Urine growing enterobacter cloacae. Negative blood cultures. He has been afebrile overnight, and WBC normalized to 7.0. Continue daily Rocephin. (3) Anemia Problem: Acute Qualifiers: Anemia type: unspecified type Qualified Code(s): D64.9 - Anemia, unspecified Narrative: Normocytic. Hgb 8.9 after 2 units given yesterday. (4) Hematuria Problem: Acute Narrative: He reports it has been present since his initial catheterization approximately 3 weeks ago, indicating source may have been traumatic catheterization. Will dc choudhury and encourage fluids, and monitor for urinary retention. (5) Hyperglycemia Problem: Acute Narrative: He had a diagnosis of DM, but his hyperglycemia is likely secondary to acute infection. Continue home tresiba and SSI. Increased glucosuria can contribute to burning with urination. (6) Pacemaker Problem: Acute Narrative: Recently replaced last month at the [facility]. Will recheck his hemoglobin in the morning, and restart plavix and possibly eliquis if the Hgb is not decreased.
[2018-08-06] MEDS: metroNIDAZOLE/SODIUM CHLORIDE 500 MG/100 ML BAG IV SCH ×2 (08:24→16:30)
--- NOTE | 2018-08-06 08:28 | ANES ---
Post Anesthesia Discharge - Transfer of Care Transfer of Care handoff given to nurse: Yes - Anesthesia Post Op Note Anesthesia Post Op Note: Care transferred to M/S RN
[2018-08-06] MEDS ORDERED: BLOOD GLUCOSE METER MC SCH (09:00)
[2018-08-06] MEDS ORDERED: ASPIRIN 81 MG TABLET.DR PO SCH (09:00)
[2018-08-06] MEDS ORDERED: CLOPIDOGREL BISULFATE 75 MG TABLET PO SCH ×2 (09:00)
[2018-08-06] MEDS ORDERED: POLYETHYLENE GLYCOL 3350 119 GM BTL PO SCH (09:00)
--- NOTE | 2018-08-06 09:26 | ANES ---
Post Anesthesia Assessment - Vital Signs Vitals: Last Vital Signs Temp 36.8 C 08/06/18 08:21 Pulse 69 08/06/18 08:21 Resp 18 08/06/18 08:21 BP 109/49 08/06/18 08:21 Pulse Ox 98 08/06/18 08:21 Airway Patency: Normal - Mental Status Level Of Consciousness: Awake - Pain Level Pain Score: 0 - N/V Assessment Nausea/Vomiting Presence: None Dehydration:: No
[2018-08-06] MEDS: Insulin Degludec [Tresiba Flextouch U-100] Sub-Q SCH (09:33)
[2018-08-06] MEDS: CHOLECALCIFEROL 1,000 UNIT CAPSULE PO SCH (09:33)
[2018-08-06] MEDS: rOPINIRole HCL 0.5 MG TABLET PO SCH ×3 (09:34→17:28)
[2018-08-06] MEDS: METOPROLOL SUCCINATE 25 MG TABLET.SA PO SCH (09:34)
[2018-08-06] MEDS: CARBIDOPA/LEVODOPA 25/100 1 TAB TABLET PO SCH ×3 (09:34→17:27)
[2018-08-06] MEDS: POTASSIUM CHLORIDE 10 MEQ TABLET.SA PO SCH (09:35)
[2018-08-06] MEDS: LISINOPRIL 2.5 MG TABLET PO SCH (09:35)
[2018-08-06] MEDS: GLIMEPIRIDE 4 MG TABLET PO SCH (12:03)
[2018-08-06] MEDS: PANTOPRAZOLE SODIUM 40 MG in NORMAL SALINE 100 ML IV SCH (14:31)
--- NOTE | 2018-08-06 17:12 | OR ---
Operative Report - Dictated Report Narrative: Operative Report Date of operation: 08/06/2018 Preoperative diagnosis: Anemia Postoperative diagnosis: Gastropathy with evidence of chronic low-grade bleeding (pathology and CLOtest pending) Operation: EGD with biopsies Surgeon: Dr Yuen Anesthesia: DELICIA Priest CRNA Indications for procedure: The patient is a 78-year-old male with chronic anemia and a significant fall in hemoglobin after admission. He has been on aspirin Plavix and Eliquis following cardiac stenting and placement of a pacemaker defibrillator. Findings: Gastropathy with evidence of chronic low-grade bleeding (pathology and CLOtest pending) Narrative of procedure: The patient was identified preoperatively, and prior to the administration of anesthetic a multidisciplinary timeout was observed With the patient in the recumbent position, a bite-block was placed, intravenous sedation administered, and the patient's eyes covered with a towel. The flexible fiberoptic gastroscope was advanced into the posterior pharynx which appeared normal. The supraglottic larynx appeared normal. The cords appeared normal, moved well, and opposed in the midline. The scope was advanced under direct vision into the proximal esophagus which appeared normal. The esophagus appeared freely distensible with normal mucosa. The esophageal mucosa appeared normal down to the gastroesophageal junction which was sharp and noninflamed. The GE junction appeared normally distensible. The scope was advanced into the stomach which was insufflated with air. Immediately apparent was a cheek gastritic erythema with small amounts of fresh blood indicating chronic bleeding. There were no active ulcers or neoplastic appearing lesions including a retroflexed view of the gastric fundus. The pylorus appeared patent. The scope was advanced into the duodenal bulb which appeared normal. The scope was advanced further to the horizontal portion of the duodenum which appeared normal, specifically the villous architecture appeared well preserved and clear bile was present. The scope was slowly withdrawn through the duodenal bulb with confirmation that no active ulcer was present. The scope was withdrawn into the stomach and public health representative biopsies of gastric mucosa obtained for CLOtest and p athology. The biopsy sites were seen to be hemostatic. The insufflated air was removed, the scope withdrawn from the patient, and the procedure terminated. The patient tolerated the anesthetic and procedure well without complication and was transferred back to his room awake and in stable condition. Reviewed and electronically signed
[2018-08-06] MEDS: DOCUSATE SODIUM 100 MG CAPSULE PO SCH (20:56)
[2018-08-06] MEDS: ROSUVASTATIN CALCIUM 20 MG TABLET PO SCH (20:57)
[2018-08-06] MEDS: TAMSULOSIN HCL 0.4 MG CAP.SR.24H PO SCH (20:58)
[2018-08-06] MEDS: CARBIDOPA/LEVODOPA CR 50/200 1 TAB TABLET.SA PO SCH (20:59)
[2018-08-06] MEDS: SERTRALINE HCL 50 MG TABLET PO SCH (21:00)
[2018-08-07] MEDS: metroNIDAZOLE/SODIUM CHLORIDE 500 MG/100 ML BAG IV SCH ×4 (00:06→23:31)
[2018-08-07 05:14] LABS: Hematocrit 25.1 % (42.0-52.0); Hemoglobin 8.1 gm/dL (13.5-18.0); Mean Cell Volume 88.1 fl (78-100); Mean Corpuscular Hemoglobin 28.4 pg (27-31); Mean Corpuscular Hgb Conc 32.3 g/dl (32-36); Mean Platelet Volume 9.9 fl (8-11.3); Neutrophil # 2.8 K/mm3 (1.3-6.0); Neutrophil % 53.1 % (42-75.0); Platelet Count 155 K/mm3 (150-450); Red Blood Count 2.85 M/mm3 (4.7-6.0); Red Cell Distribution Width 17.7 % (11.5-14.0); White Blood Count 5.3 K/mm3 (4.0-10.5)
[2018-08-07 05:22] LABS: Anion Gap 10.1 mmol/L (6.8-13.8); Calcium * 8.2 mg/dL (7.9-10.9); Carbon Dioxide 27.4 mmol/L (24-32.6); Estimated Creat Clear 42.8; Potassium 3.5 mmol/L (3.4-4.6)
[2018-08-07] MEDS: INSULIN LISPRO 100 UNITS/ML VIAL SC SCH ×4 (07:34→21:00)
--- NOTE | 2018-08-07 08:09 | PN ---
Subjective - Date and Time Seen Date: 08/07/18 Time: 07:52 Subjective Narrative: Patient reports feeling ok this morning. His left lower abdominal pain is minimal. He doesn't feel like he is still having blood in his urine. His stools are still dark, and he had several yesterday. Is tolerating a consistent carb diet. Objective - Review of Systems Generalized/Overall Review: Denies: Fever Respiratory: Denies: Shortness of Breath Cardiac: Denies: Chest Pain, Edema Abdominal: Denies: Vomiting Genitourinary Symptoms: Reports: Burning - "a little bit" - Vitals Vitals: Last Vital Signs Temp 36.1 C 08/07/18 06:50 Pulse 70 08/07/18 06:50 Resp 12 08/07/18 06:50 BP 109/56 08/07/18 06:50 Pulse Ox 100 08/07/18 06:50 - Abnormal Lab Findings Abnormal Lab Findings: Abnormal Lab Results 08/07/18 08/07/18 Range/Units 05:02 05:02 RBC 2.85 L (4.7-6.0) M/mm3 Hgb 8.1 L (13.5-18.0) gm/dL Hct 25.1 L (42.0-52.0) % RDW 17.7 H (11.5-14.0) % Monocytes % 12.4 H (0.0-9) % Eosinophils % 7.3 H (0.0-3.0) % Lymphocytes # 1.41 L (1.5-3.5) k/mm3 BUN 35 H (6-23) mg/dL Est GFR (Non-Af Amer) 52 L (60-130) mL/min BUN/Creatinine Ratio 25.0 H (9.0-21.6) Random Glucose 153 H D (70-110) mg/dL - Exam Constitutional: Present: Oriented x3, Cooperative Respiratory: Present: normal breath sounds, no respiratory distress, No wheezing. Absent: rhonchi Cardiovascular/Chest: Present: regular rate, rhythm Abdomen: Present: Normal bowel sounds, soft, tender - mild, left lower quadrant Extremity: Absent: lower extremity edema - JULIETTE hose in place Neurologic: Present: normal mood/affect Eye contact: Present: cooperative Thoughts: Present: normal thought pattern Assessment/Plan - Problems/Diagnosis (1) Anemia Problem: Acute Qualifiers: Anemia type: unspecified type Qualified Code(s): D64.9 - Anemia, unspecified Narrative: His Hgb decreased to 8.1 this morning. Bleeding present in stomach on yesterday's EGD. His home eliquis and plavix are held secondary to this bleed. Will recheck hgb this afternoon, and give one U PRBC if he has decreased. Will restart when his HGB stabilizes. He continues to have dark stools, which is to be expected given the EGD results. His BP is on the low side, and HR not elevated. (2) Abdominal pain Problem: Acute Qualifiers: Abdominal location: left lower quadrant Qualified Code(s): R10.32 - Left lower quadrant pain Narrative: Improved. Will continue 7 days of flagyl for possible diverticulitis based on symptoms. CT, however, was not positive for colitis. No longer febrile, and WBC normalized yesterday. Miralax held as he had so many BMs yesterday. (3) UTI (urinary tract infection) Problem: Acute Qualifiers: Urinary tract infection type: catheter-associated UTI Encounter type: initial encounter Narrative: Patient's choudhury catheter removed yesterday. He still has "a little" burning with urination, which is secondary to infection, elevated glucose, or hematuria. He feels like the hematuria is no longer present, and his glucose has improved. Will continue Rocephin today, and possibly switch to cipro tomorrow in anticipation of discharge. He has a urology appointment in two weeks, scheduled when he was hospitalized in . (4) Hematuria Problem: Acute Narrative: Improving. Likely secondary to anticoagulants, and possible traumatic catheterization 3 weeks ago. (5) Hyperglycemia Problem: Acute (6) Pacemaker Problem: Acute Narrative: Seems to be functioning appropriately. Will restart plavix when his Hgb stabilizes.
[2018-08-07] MEDS: Insulin Degludec [Tresiba Flextouch U-100] Sub-Q SCH (09:59)
[2018-08-07] MEDS: CARBIDOPA/LEVODOPA 25/100 1 TAB TABLET PO SCH ×3 (10:00→16:26)
[2018-08-07] MEDS: rOPINIRole HCL 0.5 MG TABLET PO SCH ×3 (10:00→16:26)
[2018-08-07] MEDS: FUROSEMIDE 80 MG TABLET PO SCH ×2 (10:00→20:57)
[2018-08-07] MEDS: POTASSIUM CHLORIDE 10 MEQ TABLET.SA PO SCH (10:00)
[2018-08-07] MEDS: METOPROLOL SUCCINATE 25 MG TABLET.SA PO SCH (10:00)
[2018-08-07] MEDS: LISINOPRIL 2.5 MG TABLET PO SCH (10:01)
[2018-08-07] MEDS: CHOLECALCIFEROL 1,000 UNIT CAPSULE PO SCH (10:01)
[2018-08-07] MEDS: GLIMEPIRIDE 4 MG TABLET PO SCH (11:57)
[2018-08-07 14:37] LABS: Hemoglobin 9.1 gm/dL (13.5-18.0)
[2018-08-07] MEDS: PANTOPRAZOLE SODIUM 40 MG in NORMAL SALINE 100 ML IV SCH (15:24)
[2018-08-07] MEDS: DOCUSATE SODIUM 100 MG CAPSULE PO SCH (20:55)
[2018-08-07] MEDS: TAMSULOSIN HCL 0.4 MG CAP.SR.24H PO SCH (20:56)
[2018-08-07] MEDS: ROSUVASTATIN CALCIUM 20 MG TABLET PO SCH (20:56)
[2018-08-07] MEDS: rOPINIRole HCL 1 MG TABLET PO SCH (20:57)
[2018-08-07] MEDS: CARBIDOPA/LEVODOPA CR 50/200 1 TAB TABLET.SA PO SCH (20:58)
[2018-08-07] MEDS: SERTRALINE HCL 50 MG TABLET PO SCH (20:58)
[2018-08-07] MEDS: BIMATOPROST 25 DROP BTL OP SCH (20:59)
[2018-08-08 05:25] LABS: Hematocrit 25.6 % (42.0-52.0); Hemoglobin 8.3 gm/dL (13.5-18.0); Mean Cell Volume 87.4 fl (78-100); Mean Corpuscular Hemoglobin 28.3 pg (27-31); Mean Corpuscular Hgb Conc 32.4 g/dl (32-36); Mean Platelet Volume 9.3 fl (8-11.3); Neutrophil # 2.7 K/mm3 (1.3-6.0); Neutrophil % 50.6 % (42-75.0); Platelet Count 174 K/mm3 (150-450); Red Blood Count 2.93 M/mm3 (4.7-6.0); Red Cell Distribution Width 17.3 % (11.5-14.0); White Blood Count 5.4 K/mm3 (4.0-10.5)
[2018-08-08 05:31] LABS: Anion Gap 12.1 mmol/L (6.8-13.8); BUN/Creatinine Ratio 23.2 (9.0-21.6); Calcium * 8.6 mg/dL (7.9-10.9); Carbon Dioxide 27.7 mmol/L (24-32.6); Estimated Creat Clear 43.4; Potassium 3.8 mmol/L (3.4-4.6)
--- NOTE | 2018-08-08 06:27 | CONS ---
HPI - General Narrative: 78-year-old diabetic male recent pacemaker placement underlying BPH with postprocedure difficulty with urination. Catheter was placed at one point. Currently without catheter. There was some hematuria in this process. Also with low-grade temperature possible UTI. I am consulted for recommendations regarding his BPH and hematuria. 08/09 urine culture: 100,000 Enterobacter resistant to ampicillin/Ancef/cefoxitin Creatinine history: 2012 1.8 08/09 1.78 08/09 1.4 PSA history: 2012 0.54 08/09 ultrasound: No hydronephrosis, simple left cyst. Prevoid 200 mL. Prostate 30 g. 08/09 CT stone protocol with Charles catheter in place: Bladder decompressed, no hydronephrosis, no stones. Nonspecific: Rib fractures healing, splenic cyst? Past medical history: Includes Parkinson's, diabetes, BPH, coronary artery disease, prior nephrolithiasis Past surgical/procedural history: Includes recent pacemaker placement, laparoscopic cholecystectomy other minor procedures Family history: Noncontributory Social history: Former smoker Review of systems: General: No current fevers, some fatigue Lungs: No SOB Heart: No chest pain currently GI: Prior nausea Endocrine: Diabetic Hematologic: Has been bruising easier than usual : Prior hematuria and obstructive urinary symptoms worse after procedure. Has been voiding okay since the catheter came out 14 point review of systems otherwise negative, important positives noted - History of Present Illness Allergies/Adverse Reactions: Allergies No Known Allergies Allergy (Verified 08/04/18 17:54) Home Medications: Home Medications Medication Instructions Recorded Last Taken Glimepiride [Amaryl] 4 mg PO DAILY@1200 11/28/14 08/04/18 12:00 Carbidopa/Levodopa Cr 50/200 1 tab PO HS 08/02/17 08/03/18 20:00 [Sinemet Cr 50/200] Docusate Sodium [Stool Softener] 400 mg PO HS 08/02/17 08/03/18 20:00 rOPINIRole HCL [Requip] 0.5 mg PO TID 08/02/17 01/11/18 18:00 Aspirin [Aspirin Enteric Coated] 81 mg PO DAILY 11/22/17 08/04/18 08:00 81mg Bimatoprost [Lumigan] 1 drp OP 11/22/17 08/03/18 21:00 Blood-Glucose Meter [Blood Glucose 1 ea MC DAILY 11/22/17 Unknown Monitoring] Carbidopa/Levodopa 2 ea PO TID 11/22/17 08/04/18 12:00 [Carbidopa-Levodopa 25-100 Tab] Cholecalciferol (Vitamin D3) 2,000 unit PO DAILY 11/22/17 01/11/18 08:00 [Vitamin D3] insulin degludec (U-100) 100 30 unit SUB-Q DAILY 06/28/18 Unknown unit/mL (3 mL) subcutaneous pen sertraline 25 mg tablet 50 mg PO HS tab 07/03/18 Unknown clopidogrel 75 mg tablet 75 mg PO DAILY #30 tab 07/17/18 08/04/18 08:00 Atorvastatin Calcium 40 mg PO HS 08/01/18 08/03/18 20:00 Furosemide [Lasix] 80 mg PO BID 08/01/18 08/04/18 08:00 Metoprolol Succinate 25 mg PO DAILY 08/01/18 Unknown Pantoprazole Sodium [Protonix] 40 mg PO DAILY 08/01/18 Unknown Polyethylene Glycol 3350 [Miralax] 17 gm PO DAILY 08/01/18 Unknown rOPINIRole HCL [Requip] 1 mg PO HS 08/01/18 Unknown Lisinopril [Zestril] 2.5 mg PO DAILY 08/05/18 Unknown Potassium Chloride [K-Tab ER] 10 meq PO DAILY 08/05/18 Unknown Tamsulosin HCl 0.4 mg PO HS 08/05/18 Unknown Ciprofloxacin HCl 500 mg PO BID #7 tablet 08/08/18 Unknown Pantoprazole Sodium [Protonix] 40 mg PO DAILY #30 tablet. 08/08/18 Unknown metroNIDAZOLE [Flagyl] 500 mg PO Q12H #13 tab 08/08/18 Unknown Procedures ANESTH INJEC PERIPH NERV (06/24/10) ANESTH INJECT-SPIN CANAL (10/13/09) ARTHROCENTESIS (03/30/10) Biopsy of lymphatic structure (07/01/03) CLOSURE SKIN & SUBCUTANEOUS NEC (04/24/10) Colonoscopy (03/01/11) Endoscopic polypectomy of large intestine (07/20/00) Esophagogastroduodenoscopy [EGD] with closed biopsy (04/28/11) Excision of semilunar cartilage of knee (05/11/06) Excision of tendon of hand for graft (06/05/02) INJECT STEROID (06/24/10) Injection of anesthetic into spinal canal for analgesia (12/23/11) Injection of other agent into spinal canal (12/23/11) Injection of steroid (12/23/11) Injection or infusion of thrombolytic agent (03/21/09) Insertion of intraocular lens prosthesis at time of cataract extraction, one- stage (07/30/12) KNEE ARTHROSCOPY (09/05/06) Laparoscopic cholecystectomy (03/13/13) Other incision with drainage of skin and subcutaneous tissue (09/19/03) PERIPH NERVE INJECT NEC (06/24/10) Phacoemulsification and aspiration of cataract (07/30/12) SONNY OF KNEE REPLACEMENT, TOTAL (ALL COMPONENTS) (03/30/10) Release of carpal tunnel (12/28/00) SPINAL CANAL INJECT NEC (10/13/09) Tendon carla reconstruction of hand (06/05/02) Total knee replacement (09/05/06) Transposition of cranial and peripheral nerves (12/28/00) VENOUS CATHETERIZATION NEC (04/02/10) Medications - Medications Current Medications: Current Medications Acetaminophen (Tylenol) 500 mg PO Q4H PRN PRN Reason: Mild pain (pain scale 1-3) Stop: 09/04/18 13:10 Last Admin: 08/05/18 16:24 Dose: 500 mg Bimatoprost (Lumigan 0.01% Ophthalmic Solution) 1 drop OP HS [facility] Stop: 09/04/18 21:01 Last Admin: 08/07/18 20:59 Dose: 1 drop Carbidopa/Levodopa (Sinemet Cr 50/200) 1 tab PO HS [facility] Stop: 09/04/18 21:01 Last Admin: 08/07/18 20:58 Dose: 1 tab Carbidopa/Levodopa (Sinemet 25/100) 2 tab PO TID [facility] Stop: 09/04/18 13:01 Last Admin: 08/07/18 16:26 Dose: 2 tab Cholecalciferol (Vitamin D) 2,000 unit PO DAILY [facility] Stop: 09/05/18 09:01 Last Admin: 08/07/18 10:01 Dose: 2,000 unit Docusate Sodium (Colace) 400 mg PO HS [facility] Stop: 09/04/18 21:01 Last Admin: 08/07/18 20:55 Dose: 400 mg Furosemide (Lasix) 80 mg PO BID [facility] Stop: 09/04/18 21:01 Last Admin: 08/07/18 20:57 Dose: 80 mg Glimepiride (Amaryl) 4 mg PO DAILY@1200 [facility] Stop: 09/05/18 12:01 Last Admin: 08/07/18 11:57 Dose: 4 mg Ceftriaxone Sodium 1,000 mg/ (Dextrose/Water) 100 mls @ 200 mls/hr IV Q24H [facility]; Protocol Stop: 09/03/18 19:46 Last Infusion: 08/07/18 20:04 Dose: Infused Pantoprazole Sodium 40 mg/ (Sodium Chloride) 100 mls @ 400 mls/hr IV Q24H [facility] Stop: 09/04/18 14:16 Last Infusion: 08/07/18 16:13 Dose: Infused Metronidazole (Flagyl) 500 mg in 100 mls @ 100 mls/hr IV Q8H [facility]; Protocol Stop: 09/05/18 08:01 Last Infusion: 08/08/18 00:31 Dose: Infused Insulin Human Lispro (Humalog) 0 units SC ACHSINS [facility]; Protocol Stop: 09/03/18 21:01 Last Admin: 08/07/18 21:00 Dose: 10 units Lisinopril (Zestril) 2.5 mg PO DAILY [facility] Stop: 09/05/18 09:01 Last Admin: 08/07/18 10:01 Dose: 2.5 mg Metoprolol Succinate (Toprol Xl) 25 mg PO DAILY [facility] Stop: 09/05/18 09:01 Last Admin: 08/07/18 10:00 Dose: 25 mg Insulin Degludec [ Tresiba Flextouch U- 100] 30 unit Sub-Q DAILY [facility] Stop: 09/05/18 09:01 Last Admin: 08/07/18 09:59 Dose: Not Given Potassium Chloride (Klor-Con 10) 10 meq PO DAILY [facility] Stop: 09/05/18 09:01 Last Admin: 08/07/18 10:00 Dose: 10 meq Ropinirole HCl (Requip) 0.5 mg PO TID [facility] Stop: 09/04/18 13:01 Last Admin: 08/07/18 16:26 Dose: 0.5 mg Ropinirole HCl (Requip) 1 mg PO HS [facility] Stop: 09/04/18 21:01 Last Admin: 08/07/18 20:57 Dose: 1 mg Rosuvastatin Calcium (Crestor) 20 mg PO [facility] Stop: 09/04/18 21:01 Last Admin: 08/07/18 20:56 Dose: 20 mg Sertraline HCl (Zoloft) 50 mg PO [facility] Stop: 09/04/18 21:01 Last Admin: 08/07/18 20:58 Dose: 50 mg Tamsulosin HCl (Flomax) 0.4 mg PO [facility] Stop: 09/04/18 21:01 Last Admin: 08/07/18 20:56 Dose: 0.4 mg Physical Examination - Exam Narrative: General: No acute distress, nontoxic Psych:Appropriate affect, mentating well HEENT: EOM grossly intact, no scleral icterus Lungs: Respirations unlabored, clear Abdomen: Benign, bladder not palpable Neuro: No obvious focal deficits Extremities: Moves all 4, okay finding dexterity, warm well perfused Heart: No JVD Skin: No obvious rash, pretty impressive bruising left upper extremity Back: No CVA tenderness Vital Signs: Vital Signs - Last Taken Temp 98.1 F 08/08/18 02:43 Pulse 69 08/08/18 02:43 Resp 18 08/08/18 02:43 BP 110/51 08/08/18 02:43 Pulse Ox 98 08/08/18 02:43 O2 Oxygen Delivery Method Room Air - Results and Findings: Narrative: #1 BPH with obstruction and urinary retention: Ultrasound today confirms he is emptying much better now. No catheter needed. Needs to stay on Flomax. I will see him back as an outpatient in a few weeks to touch base and see how he is doing with a urinalysis and a flow/BVI. If goes into retention again just let me know. #2 gross hematuria: CT and ultrasound probably good enough to rule out upper tract pathology. Has underlying renal insufficiency so I would not use contrast. I will follow-up with outpatient urinalysis. If recurrence of hematuria or microhematuria or if patient wants to proceed with formal cystoscopy have enough evidence to do so. Lab/Microbiology results last 24 hrs: Abnormal/Pending Laboratory Last 24 HRS 08/08/18 08/08/18 08/07/18 05:10 05:10 14:30 RBC 2.93 L Hgb 8.3 L 9.1 L Hct 25.6 L 28.0 L RDW 17.3 H Monocytes % 12.1 H Eosinophils % 7.8 H BUN 32 H Est GFR (Non-Af Amer) 53 L BUN/Creatinine Ratio 23.2 H Random Glucose 181 H Culture 08/06/18 07:55 CLOtest - Final Biopsy
[2018-08-08] MEDS: INSULIN LISPRO 100 UNITS/ML VIAL SC SCH ×2 (07:20→11:45)
--- NOTE | 2018-08-08 07:48 | PN ---
[facility] Note - Interim Date: 08/08/18 Time: 07:45 Narrative: 08/08/18 07:45 Patient continues to feel better overall, but still has some burning with urination. Did not have a BM yesterday. His scrotal swelling has improved, and he has no lower extremity swelling. Is tolerating a diet without difficulty, but still has some LLQ pain. Hgb 8.3 this morning, similar to yesterday. Urology pending, but will likely discharge to the [place] later today.
[2018-08-08] MEDS: POTASSIUM CHLORIDE 10 MEQ TABLET.SA PO SCH (08:30)
[2018-08-08] MEDS: FUROSEMIDE 80 MG TABLET PO SCH (08:30)
[2018-08-08] MEDS: rOPINIRole HCL 0.5 MG TABLET PO SCH ×2 (08:35→12:48)
[2018-08-08] MEDS: CARBIDOPA/LEVODOPA 25/100 1 TAB TABLET PO SCH ×2 (08:36→12:48)
[2018-08-08] MEDS: METOPROLOL SUCCINATE 25 MG TABLET.SA PO SCH (08:36)
[2018-08-08] MEDS: CHOLECALCIFEROL 1,000 UNIT CAPSULE PO SCH (08:37)
[2018-08-08] MEDS: LISINOPRIL 2.5 MG TABLET PO SCH (08:38)
[2018-08-08] MEDS: metroNIDAZOLE/SODIUM CHLORIDE 500 MG/100 ML BAG IV SCH (08:39)
[2018-08-08] MEDS: Insulin Degludec [Tresiba Flextouch U-100] Sub-Q SCH (09:47)
[2018-08-08] MEDS: GLIMEPIRIDE 4 MG TABLET PO SCH (11:57)
--- NOTE | 2018-08-08 12:16 | DS ---
(1) Anemia Problem: Acute Qualifiers: Anemia type: other cause (2) Abdominal pain Problem: Acute Qualifiers: Abdominal location: left lower quadrant Qualified Code(s): R10.32 - Left lower quadrant pain (3) UTI (urinary tract infection) Problem: Acute Qualifiers: Urinary tract infection type: catheter-associated UTI Encounter type: initial encounter (4) Hematuria Problem: Acute (5) Hyperglycemia Problem: Acute (6) Pacemaker Problem: Acute (7) GI bleed Problem: Acute (8) Diverticulitis Problem: Suspected Description of Stay: Patient has had extensive hospitalizations over the last month, including having an upgrade to a biventricular ICD. Was having fever to 100.6 and vomiting at the [facility]. UTI - UC positive for enterobacter cloacae, treated with daily rocephin. Transition to cipro after discharge to complete a 10 day course. Hematuria - Present since catheterization at [facility]. Charles was removed on 08/06, and he was able to urinate throughout the rest of hospitalization. He had a urology referral placed for urinary retention, BPH, and hematuria while at the [facility], and he was seen by Dr. Adrian during this hospitalization. He will follow up with him after discharge. Upper GI bleed causing anemia - He was transfused 2 U PRBC on 08/05, and had an upper endoscopy the following day. The EGD showed active blood and gastritis. His eliquis and plavix were stopped, and his Hgb stabilized, but will need to be closely monitored. Abdominal pain - Improved after his EGD. CT negative for diverticulitis, but will finish a course of treatment with flagyl. Hyperglycemia - His glucose was greater than 500 initially, improved with fluids and treatment for infection. He did not have difficulty with heart rate, SOB, or lower extremity swelling during this admission. Procedures Performed: none Results and Findings: Pending Mircobiology Results 08/04/18 18:26 Blood Blood Culture - Preliminary NO GROWTH AFTER 48 HOURS 08/04/18 18:10 Blood Blood Culture - Preliminary NO GROWTH AFTER 48 HOURS Lab Pending Results 08/04/18 17:45: Urine Color Yellow, Urine Appearance Slightly cloudy, Urine pH 6.0, Ur Specific Lacey 1.010, Urine Protein Negative, Urine Glucose (UA) >=1000 H, Urine Ketones Negative, Urine Blood 250 H, Urine Nitrate Negative, Urine Bilirubin Negative, Urine Urobilinogen Normal, Ur Leukocyte Esterase 75 H, Urine RBC 25-50 H, Urine WBC 10-25 H, Ur Epithelial Cells None seen, Urine Bacteria 1+ H, Urine Culture Comments Culture to follow 08/04/18 18:00: Ferritin 314, Vitamin B12 625, Folate 8.6 08/04/18 18:00: Iron 31 L, TIBC 277, Transferrin % Sat 11 L 08/04/18 18:00: Transferrin 209 08/04/18 18:10: WBC 11.5 H, RBC 2.80 L, Hgb 8.0 L, Hct 24.2 L, MCV 86.4, MCH 28.6, MCHC 33.1, RDW 18.6 H, Plt Count 158, MPV 9.4, Immature Gran % (Auto) 0.40, Immature Gran # (Auto) 0.05 H, Neutrophils % 80.8 H, Lymphocytes % 8.0 L, Monocytes % 10.1 H, Eosinophils % 0.5, Basophils % 0.2, Nucleated RBC % 0.0, Neutrophils # 9.3 H, Lymphocytes # 0.92 L, Monocytes # 1.2 H, Eosinophils # 0.1, Absolute Basophils 0.0 08/04/18 18:10: VBG pH 7.438 H 08/04/18 18:10: Sodium 129 L, Plasma Sodium 134, Potassium 4.0, Chloride 93 L, Carbon Dioxide 28.5, Anion Gap 11.5, BUN 59 H, Creatinine 1.77 H, Est GFR (Non- Af Amer) 40 L, BUN/Creatinine Ratio 33.3 H, Random Glucose 412 H, Calcium 8.9, Calcium Adj for Albumin 9.1, Total Bilirubin 2.7 H, AST 12, ALT 7 L, Alkaline Phosphatase 170, Total Protein 7.0, Albumin 3.4, Serum Ketones Negative 08/04/18 18:10: Lactic Acid, Venous 2.3 H* 08/04/18 18:10: PT 12.2 H, INR (Anticoag Therapy) 1.22 H 08/04/18 21:20: Lactic Acid, Venous 1.9 08/05/18 13:23: WBC 11.3 H, RBC 2.66 L, Hgb 7.6 L*, Hct 23.4 L*, MCV 88.0, MCH 28.6, MCHC 32.5, RDW 18.7 H, Plt Count 144 L, MPV 9.2, Immature Gran % (Auto) 0.70 H, Immature Gran # (Auto) 0.08 H, Neutrophils % 75.5 H, Lymphocytes % 13.2 L, Monocytes % 8.2, Eosinophils % 2.1, Basophils % 0.3, Nucleated RBC % 0.0, Neutrophils # 8.6 H, Lymphocytes # 1.49 L, Monocytes # 0.9, Eosinophils # 0.2, Absolute Basophils 0.0 08/05/18 13:23: Sodium 130 L, Plasma Sodium 132, Potassium 3.6, Chloride 96 L, Carbon Dioxide 27.3, Anion Gap 10.3, BUN 53 H, Creatinine 1.55 H, Est GFR (Non- Af Amer) 46 L, BUN/Creatinine Ratio 34.2 H, Random Glucose 249 H D, Calcium 8.6 08/05/18 13:50: Stool Occult Blood Positive H 08/05/18 14:45: Blood Type O Negative, Antibody Screen Negative, Crossmatch See Detail 08/05/18 23:50: Hgb 8.6 L, Hct 26.2 L 08/06/18 05:10: WBC 7.0 D, RBC 3.08 L, Hgb 8.9 L, Hct 26.8 L, MCV 87.0, MCH 28.9, MCHC 33.2, RDW 17.7 H, Plt Count 141 L, MPV 10.3, Immature Gran % (Auto) 0.40, Immature Gran # (Auto) 0.03, Neutrophils % 64.8, Lymphocytes % 17.4 L, Monocytes % 11.9 H, Eosinophils % 5.1 H, Basophils % 0.4, Nucleated RBC % 0.0, Neutrophils # 4.6, Lymphocytes # 1.22 L, Monocytes # 0.8, Eosinophils # 0.4, Absolute Basophils 0.0 08/06/18 05:10: Sodium 128 L, Plasma Sodium 131, Potassium 3.6, Chloride 97, Carbon Dioxide 24.4, Anion Gap 10.2, BUN 40 H, Creatinine 1.31, Est GFR (Non-Af Amer) 56 L D, BUN/Creatinine Ratio 30.5 H, Random Glucose 260 H, Calcium 8.5 08/06/18 08:25: Pathology Specimen Spec to path 08/07/18 05:02: WBC 5.3 D, RBC 2.85 L, Hgb 8.1 L, Hct 25.1 L, MCV 88.1, MCH 28.4, MCHC 32.3, RDW 17.7 H, Plt Count 155, MPV 9.9, Immature Gran % (Auto) 0.40, Immature Gran # (Auto) 0.02, Neutrophils % 53.1, Lymphocytes % 26.4, Monocytes % 12.4 H, Eosinophils % 7.3 H, Basophils % 0.4, Nucleated RBC % 0.0, Neutrophils # 2.8, Lymphocytes # 1.41 L, Monocytes # 0.7, Eosinophils # 0.4, Absolute Basophils 0.0 08/07/18 05:02: Sodium 134, Plasma Sodium 135, Potassium 3.5, Chloride 100, Carbon Dioxide 27.4, Anion Gap 10.1, BUN 35 H, Creatinine 1.40, Est GFR (Non-Af Amer) 52 L, BUN/Creatinine Ratio 25.0 H, Random Glucose 153 H D, Calcium 8.2 08/07/18 14:30: Hgb 9.1 L, Hct 28.0 L 08/08/18 05:10: WBC 5.4, RBC 2.93 L, Hgb 8.3 L, Hct 25.6 L, MCV 87.4, MCH 28.3, MCHC 32.4, RDW 17.3 H, Plt Count 174, MPV 9.3, Immature Gran % (Auto) 0.40, Immature Gran # (Auto) 0.02, Neutrophils % 50.6, Lymphocytes % 28.4, Monocytes % 12.1 H, Eosinophils % 7.8 H, Basophils % 0.7, Nucleated RBC % 0.0, Neutrophils # 2.7, Lymphocytes # 1.53, Monocytes # 0.7, Eosinophils # 0.4, Absolute Basophils 0.0 08/08/18 05:10: Sodium 136, Plasma Sodium 137, Potassium 3.8, Chloride 100, Carbon Dioxide 27.7, Anion Gap 12.1, BUN 32 H, Creatinine 1.38, Est GFR (Non-Af Amer) 53 L, BUN/Creatinine Ratio 23.2 H, Random Glucose 181 H, Calcium 8.6 Discharge Location: [facility] Disposition: SNF Condition: Good Level of Care: SNF Discharge Activity: Activity as tolerated Discharge Diet: Consistent carbs Group Home Therapy: Physicial Therapy, Occupation Therapy Referrals: Elise Gallo DO [Primary Care Provider] - Consultation Done:: Urology Prescriptions (Any new or edited meds): Ciprofloxacin HCl 500 mg PO BID #7 tablet metroNIDAZOLE [Flagyl] 500 mg PO Q12H #13 tab Pantoprazole Sodium [Protonix] 40 mg PO DAILY #30 tablet. Complete Home Medications List: Complete Home Medication List: Glimepiride [Amaryl] 4 mg PO DAILY@1200 11/28/14 Carbidopa/Levodopa Cr 50/200 [Sinemet Cr 50/200] 1 tab PO HS 08/02/17 Docusate Sodium [Stool Softener] 400 mg PO HS 08/02/17 rOPINIRole HCL [Requip] 0.5 mg PO TID 08/02/17 Aspirin [Aspirin Enteric Coated] 81 mg PO DAILY 11/22/17 Bimatoprost [Lumigan] 1 drp OP HS 11/22/17 Blood-Glucose Meter [Blood Glucose Monitoring] 1 ea MC DAILY 11/22/17 Carbidopa/Levodopa [Carbidopa-Levodopa 25-100 Tab] 2 ea PO TID 11/22/17 Cholecalciferol (Vitamin D3) [Vitamin D3] 2,000 unit PO DAILY 11/22/17 insulin degludec (U-100) 100 unit/mL (3 mL) subcutaneous pen 30 unit SUB-Q DAILY 06/28/18 sertraline 25 mg tablet 50 mg PO HS tab 07/03/18 clopidogrel 75 mg tablet 75 mg PO DAILY #30 tab 07/17/18 Atorvastatin Calcium 40 mg PO HS 08/01/18 Furosemide [Lasix] 80 mg PO BID 08/01/18 Metoprolol Succinate 25 mg PO DAILY 08/01/18 Pantoprazole Sodium [Protonix] 40 mg PO DAILY 08/01/18 Polyethylene Glycol 3350 [Miralax] 17 gm PO DAILY 08/01/18 rOPINIRole HCL [Requip] 1 mg PO HS 08/01/18 Lisinopril [Zestril] 2.5 mg PO DAILY 08/05/18 Potassium Chloride [K-Tab ER] 10 meq PO DAILY 08/05/18 Tamsulosin HCl 0.4 mg PO HS 08/05/18 Ciprofloxacin HCl 500 mg PO BID #7 tablet 08/08/18 Pantoprazole Sodium [Protonix] 40 mg PO DAILY #30 tablet. 08/08/18 metroNIDAZOLE [Flagyl] 500 mg PO Q12H #13 tab 08/08/18 Amb Orders for Discharge: CBC Time Frame: 08/10/18, Facility: [facility], Location: [facility]
[2018-08-08 12:53] VITALS: BP 108/49
== END 2018-08-08 13:21 | DRG 698 ==
LOC: MS 17:47 → ER 17:47 → MS 20:32
PROVIDERS: ADMIT Internal Medicine; ATTEND Family Medicine
DX: F32.9 Major depressive disorder, single episode, unspecified; N39.0 Urinary tract infection, site not specified; Z79.4 Long term (current) use of insulin; N40.1 Benign prostatic hyperplasia with lower urinary tract symptoms; G20 Parkinson's disease; R33.8 Other retention of urine; E11.65 Type 2 diabetes mellitus with hyperglycemia; B96.89 Other specified bacterial agents as the cause of diseases classified elsewhere; Z23 Encounter for immunization; T83.511A Infection and inflammatory reaction due to indwelling urethral catheter, initial encounter; K57.92 Diverticulitis of intestine, part unspecified, without perforation or abscess without bleeding; R31.0 Gross hematuria; N13.8 Other obstructive and reflux uropathy; N45.2 Orchitis; Z79.01 Long term (current) use of anticoagulants; D64.9 Anemia, unspecified; E78.5 Hyperlipidemia, unspecified; K21.9 Gastro-esophageal reflux disease without esophagitis; K29.71 Gastritis, unspecified, with bleeding
CPT/HCPCS: 36415; 74177; 76770; 76870; 80048; 80053; 81001; 82009; 82272; 82607; 82728; 82746; 82800; 83540; 83550; 83605; 84466; 85014; 85018; 85025; 85610; 86850; 86900; 87040; 87081; 87086; 88305; 88312; 88313; 90686; 93005; 96365; 99284; G0008; P9016